=== PATIENT | female | born 1945 | race Caucasian/White ===

== ENCOUNTER 2025-03-08 12:32 | Emergency (ER) | payer MEDICARE, SELFPAY ==
--- OUTSIDE RECORDS SUMMARY | 2025-02-21 20:00 | XMS_ITS | Continuity of Care Document ---
Author Organization [facility] Address [address] [place] [address] Phone Care Team Providers Care Gis Developer Name Role Phone Cedric Carmen MD Unavailable Unavailable Allergies, Adverse Reactions, Alerts Substance Reaction Status Criticality HYDROMORPHONE HCL Active No Informa tion NSAIDS (Non-Steroidal Anti-Inflammatory Drug) Active No Information codeine Active No Information Medications Medication Instructions Dosage Effective Dates (start - stop) Status Comments buprenorphine 8 mg-naloxone [address] 1 tablet by sublingual route every day allow to dissolve slowly in mouth without chewing or swallowing 1.00 tablet - Active Claritin RediTabs 10 mg disintegrating tablet take 1 tablet by oral route every day and place on top of the tongue where it will dissolve, then swallow 10 MG - Active leflunomide 20 mg tablet take 1 tablet by oral route every day 20 MG - Active metformin 500 mg tablet take 1 tablet by oral route 2 times every day with morning and evening meals 500 MG - Active verapamil ER (SR) 120 mg tablet,extended release take 1 tablet by oral route every day with food 120 MG - Active Vitamin C 500 mg capsule,extended release - Active vitamin E 100 unit capsule - Active Procedures Procedure Date REM MNTR PHYSIOL EDWARD DEV REM PHYSIOL MNTR 20 MIN MO Rem physiol mntr ea addl REM MNTR PHYSIOL EDWARD DEV REM PHYSIOL MNTR 20 MIN MO Rem physiol mntr ea addl REM MNTR PHYSIOL DEWARD DEV REM PHYSIOL MNTR 20 MIN MO May-31-2025 Rem physiol mntr ea addl REM MNTR PHYSIOL EDWARD DEV REM PHYSIOL MNTR 20 MIN Rem physiol mntr ea addl REM MNTR PHYSIOL EDWARD DEV REM PHYSIOL MNTR 20 MIN MO Rem physiol mntr ea addl REM MNTR PHYSIOL EDWARD DEV REM PHYSIOL MNTR 20 MIN MO Rem physiol mntr ea addl 20 REM MNTR PHYSIOL EDWARD DEV REM PHYSIOL MNTR 20 MIN MO Rem physiol mntr ea addl REM MNTR PHYSIOL EDWARD DEV REM PHYSIOL MNTR 20 MIN MO Rem physiol mntr ea addl REM MNTR PHYSIOL EDWARD DEV REM PHYSIOL MNTR 20 MIN MO Rem physiol mntr ea addl REM MNTR PHYSIOL EDWARD DEV REM PHYSIOL MNTR 20 MIN Rem physiol mntr ea addl REM MNTR PHYSIOL EDWARD DEV REM PHYSIOL MNTR 20 MIN MO Rem physiol mntr ea addl REM MNTR PHYSIOL EDWARD DEV REM PHYSIOL MNTR 20 MIN Rem physiol mntr ea addl REM MNTR PHYSIOL EDWARD DEV REM PHYSIOL MNTR 20 MIN MO Rem physiol mntr ea addl 20 REM MNTR PHYSIOL EDWARD DEV REM PHYSIOL MNTR 20 MIN MO Rem physiol mntr ea addl REM MNTR PHYSIOL EDWARD DEV REM PHYSIOL MNTR 20 MIN MO Rem physiol mntr ea addl REM MNTR PHYSIOL EDWARD DEV REM PHYSIOL MNTR 20 MIN MO Rem physiol mntr ea addl REM MNTR PHYSIOL EDWARD DEV REM PHYSIOL MNTR 20 MIN MO Rem physiol mntr ea addl REM MNTR PHYSIOL EDWARD DEV REM PHYSIOL MNTR 20 MIN MO Rem physiol mntr ea addl 20 REM MNTR PHYSIOL EDWARD DEV REM PHYSIOL MNTR 20 MIN MO Rem physiol mntr ea addl 20 REM MNTR PHYSIOL EDWARD DEV REM PHYSIOL MNTR 20 MIN MO Rem physiol mntr ea addl REM MNTR PHYSIOL EDWARD DEV REM PHYSIOL MNTR 20 MIN MO Rem physiol mntr ea addl REM MNTR PHYSIOL EDWARD DEV REM PHYSIOL MNTR 20 MIN MO Rem physiol mntr ea addl 20 REM MNTR PHYSIOL EDWARD DEV REM PHYSIOL MNTR 20 MIN MO Rem physiol mntr ea addl 20 REM MNTR PHYSIOL EDWARD DEV REM PHYSIOL MNTR 20 MIN MO Rem physiol mntr ea addl 20 REM MNTR PHYSIOL EDWARD DEV REM PHYSIOL MNTR 20 MIN MO Rem physiol mntr ea addl 20 Office/outpatient visit,est, low 2022 X-RAY EXAM HIP UNI 2-3 VIEWS REM MNTR PHYSIOL EDWARD DEV REM PHYSIOL MNTR 20 MIN MO Rem physiol mntr ea addl 20 REM MNTR PHYSIOL EDWARD DEV REM PHYSIOL MNTR 20 MIN MO Rem physiol mntr ea addl REM MNTR PHYSIOL EDWARD DEV REM PHYSIOL MNTR 20 MIN MO Rem physiol mntr ea addl 20 REM MNTR PHYSIOL EDWARD DEV REM PHYSIOL MNTR 20 MIN MO Rem physiol mntr ea addl REM MNTR PHYSIOL EDWARD DEV REM PHYSIOL MNTR 20 MIN MO Rem physiol mntr ea addl 20 REM MNTR PHYSIOL EDWARD DEV REM PHYSIOL MNTR 20 MIN MO Rem physiol mntr ea addl 20 REM PHYSIOL MNTR 20 MIN MO Rem physiol mntr ea addl REM MNTR PHYSIOL EDWARD DEV REM PHYSIOL MNTR 20 MIN MO Rem physiol mntr ea addl REM MNTR PHYSIOL EDWARD DEV REM PHYSIOL MNTR 20 MIN MO Rem physiol mntr ea addl 20 REM MNTR PHYSIOL EDWARD DEV REM PHYSIOL MNTR 20 MIN MO Rem physiol mntr ea addl 20 REM PHYSIOL MNTR 20 MIN MO Rem physiol mntr ea addl 20 REM MNTR PHYSIOL EDWARD DEV REM PHYSIOL MNTR 20 MIN MO Rem physiol mntr ea addl 20 REM PHYSIOL MNTR 20 MIN MO Rem physiol mntr ea addl 20 REM MNTR PHYSIOL EDWARD DEV REM PHYSIOL MNTR 20 MIN MO Rem physiol mntr ea addl REM MNTR PHYSIOL EDWARD DEV REM PHYSIOL MNTR 20 MIN MO Rem physiol mntr ea addl 20 REM MNTR PHYSIOL EDWARD DEV Postop followup visit X-RAY EXAM HIP UNI 2-3 VIEWS No Charge REM PHYSIOL MNTR 20 MIN MO Rem physiol mntr ea addl REM MNTR PHYSIOL EDWARD DEV REM PHYSIOL MNTR 20 MIN MO Rem physiol mntr ea addl Total hip arthroplasty &prosthesis PA Total Hip Arthoplasty & Prosthesis Walker folding wheeled w/o s HO post-op hip abduction Intermittent Compression Device - SELF P AY REM MNTR PHYSIOL EDWARD DEV Advance Directives Directive Yes / No Effective Date File Name No Information Encounters Encounter Description Practice Location Reason(s) For Visit Diagnoses Date Provider Providers Copied on Encounter REM MNTR PHYSIOL EDWARD DEV [facility], [facility], tel:[phone] No Information 5 Kermit Steele. [address] [place] [address], [facility], . tel:[phone] Referring Provider: Cedric Craig, [address] [place] [address], [facility]. tel:[phone] REM MNTR PHYSIOL EDWARD DEV [facility], [facility], tel:[phone] No Information 5 Kermit Steele. [address] [place] [address], [address], [facility], . tel:[phone] Referring Provider: Cedric Craig, [address] [place] [address], [facility]. tel:[phone] REM MNTR PHYSIOL EDWARD DEV [facility], [facility], tel:[phone] No Information 5 Kermit Steele. [address] [place] [address], [address], [place]. tel:[phone] Referring Provider: Cedric Craig, [address] [place] [address] [address], [place], [address]. tel:[phone] REM MNTR PHYSIOL EDWARD DEV [facility], [address] [place] [address], [facility], tel:[phone] No Information 5 Kermit Steele. [address] [place] [address], [address], [place], [address], [place]. tel:[phone] Referring Provider: Cedric Craig, [address] [place] [address] [address], [place], [address]. tel:[phone] REM MNTR PHYSIOL EDWARD DEV [facility], [address] [place] [address], [facility], tel:[phone] No Information 5 Kermit Steele. [address] [place] [address], [address], [place], [address], [place]. tel:[phone] Referring Provider: Cedric Craig, [address] [place] [address] [address], [place], [address]. tel:[phone] REM MNTR PHYSIOL EDWARD DEV [facility], [address] [place] [address], [facility], tel:[phone] No Information 5 Kermit Steele. [address] [place] [address], [address], [place], [address], [place]. tel:[phone] Referring Provider: Cedric Craig, [address] [place] [address] [address], [place], [address]. tel:[phone] REM MNTR PHYSIOL EDWARD DEV [facility], [address] [place] [address], [facility], tel:[phone] No Information 5 Kermit Steele. [address] [place] [address], [address], [place], [address], [place]. tel:[phone] Referring Provider: Cedric Craig, [address] [place] [address] [address], [place], [address]. tel:[phone] REM MNTR PHYSIOL EDWARD DEV [facility], [address] [place] [address], [address], [place] tel:[phone] No Information 4 Kermit Steele. [address] [place] [address], [address], [place], [address], [place]. tel:[phone] Referring Provider: Cedric rCaig, [address] [place] [address] [address], [place], [address]. tel:[phone] REM MNTR PHYSIOL EDWARD DEV [facility], [address] [place] [address], [facility], [place] tel:[phone] No Information 4 Kermit Steele. [address] [place] [address], [address], [place], [address], [place]. tel:[phone] Referring Provider: Cedric Craig, [address] [place] [address] [address], [place], [address]. tel:[phone] REM MNTR PHYSIOL EDWARD DEV [facility], [address] [place] [address], [address], [place] tel:[phone] No Information 4 Kermit Steele. [address] [place] [address], [address], [place], [address], [place]. tel:[phone] Referring Provider: Cedric Craig, [address] [place] [address] [address], [place], [address]. tel:[phone] REM MNTR PHYSIOL EDWARD DEV [facility], [address] [place] [address], [address], [place] tel:[phone] No Information 4 Kermit Steele. [address] [place] [address], [address], [place], [address], [place]. tel:[phone] Referring Provider: Cedric Craig, [address] [place] [address] [address], [place], [address]. tel:[phone] REM MNTR PHYSIOL EDWARD DEV [facility], [address] [place] [address], [address], [place] tel:[phone] [address] No Information 4 Kermit Steele. [address] [place] [address], [address], [place], [address], [place]. tel:[phone] Referring Provider: Cedric Craig, [address] [place] [address] [address], [place], [address]. tel:[phone] REM MNTR PHYSIOL EDWARD DEV [facility], [address] [place] [address], [address], [place] tel:[phone] No Information 4 Kermit Steele. [address] [place] [address], [address], [place], [address], [place]. tel:[phone] Referring Provider: Cedric Craig, [address] [place] [address] [address], [place], [address]. tel:[phone] REM MNTR PHYSIOL EDWARD DEV [facility], [address] [place] [address], [address], [place] tel:[phone] [address] No Information 4 Kermit Steele. [address] [place] [address], [address], [place], [address], [place]. tel:[phone] Referring Provider: Cedric Craig, [address] [place] [address] [address], [place], [address]. tel:[phone] REM MNTR PHYSIOL EDWARD DEV [facility], [address] [place] [address], [address], [place] tel:[phone] [address] No Information 4 Kermit Steele. [address] [place] [address], [address], [place], [address], [place]. tel:[phone] Referring Provider: Cedric Craig, [address] [place] [address] [address], [place], [address]. tel:[phone] REM MNTR PHYSIOL EDWARD DEV [facility], [place], [address], [place] tel:[phone] No Information 4 Kermit Steele. [address] [place] [address], [address], [place], [address], [place]. tel:[phone] Referring Provider: Cedric Craig, [address] [place] [address] [address], [place], [address]. tel:[phone] REM MNTR PHYSIOL EDWARD DEV [facility], [address] [place] [address], [address], [place] tel:[phone] No Information 4 Kermit Steele. [address] [place] [address], [address], [place], [address], [place]. tel:[phone] Referring Provider: Cedric Craig, [address] [place] [address] [address], [place], [address]. tel:[phone] REM MNTR PHYSIOL EDWARD DEV [facility], [address] [place] [address], [address], [place] tel:[phone] [address] No Information 4 Kermit Steele. [address] [place] [address], [address], [place], [address], [place]. tel:[phone] Referring Provider: Cedric Craig, [address] [place] [address] [address], [place], [address]. tel:[phone] REM MNTR PHYSIOL EDWARD DEV [facility], [address] [place] [address], [address], [place] tel:[phone] [address] No Information 4 Kermit Steele. [address] [place] [address], [address], [place], [address], [place]. tel:[phone] Referring Provider: Cedric Craig, [address] [place] [address] [address], [place], [address]. tel:[phone] REM MNTR PHYSIOL EDWARD DEV [facility], [address] [place] [address], [facility], tel:[phone] No Information 3 Kermit Steele. [address] [place] [address], [address], [address], [place]. tel:[phone] Referring Provider: Cedric Craig, [address] [place] [address], [address]. tel:[phone] REM MNTR PHYSIOL EDWARD DEV [facility], [address] [place] [address], [facility], tel:[phone] No Information 3 Kermit Steele. [address] [place] [address], [address], [facility], [place]. tel:[phone] Referring Provider: Cedric Craig, [address] [place] [address], [facility]. tel:[phone] REM MNTR PHYSIOL EDWARD DEV [facility], [address] [place] [address], [facility], tel:[phone] No Information 3 Kermit Steele. [address] [place] [address], [address], [facility], [place]. tel:[phone] Referring Provider: Cedric Craig, [address] [place] [address], [address]. tel:[phone] REM MNTR PHYSIOL EDWARD DEV [facility], [address] [place] [address], [facility], tel:[phone] No Information 3 Kermit Steele. [address] [place] [address], [address], [facility], [place]. tel:[phone] Referring Provider: Cedric Craig, [address] [place] [address], [address]. tel:[phone] REM MNTR PHYSIOL EDWARD DEV [facility], [address] [place] [address], [facility], [place] tel:[phone] No Information 3 Kermit Steele. [address] [place] [address], [address], [place], [address], [place]. tel:[phone] Referring Provider: Cedric Craig, [address] [place] [address] [address], [place], [address]. tel:[phone] REM MNTR PHYSIOL EDWARD DEV [facility] [address], [facility], tel:[phone] No Information 3 Kermit Steele. [address] [place] [address], [address], [place], [address], [place]. tel:[phone] Referring Provider: Cedric Craig, [address] [place] [address], [place], [address]. tel:[phone] Office/outpa tient visit,[facility], [address], [facility], tel:[phone] Unilateral osteoarthritis resulting from hip dysplasia, left hipStatus post left hip replacement 3 Kermit Steele. [address] [place] [address], [address], [place], [address], [place]. tel:[phone] Referring Provider: Cedric Craig, [address] [place] [address] [address], [place], [address]. tel:[phone] REM MNTR PHYSIOL EDWARD DEV [facility], [address] [place] [address], [facility], [place] tel:[phone] No Information 3 Kermit Steele. [address] [place] [address], [address], [place], [address], [place]. tel:[phone] Referring Provider: Cedric Craig, [address] [place] [address], [place], [address]. tel:[phone] REM MNTR PHYSIOL EDWARD DEV [facility], [facility], [place] tel:[phone] [address] No Information 3 Kermit Steele. [address] [place] [address], [address], [place], [address], [place]. tel:[phone] Referring Provider: Cedric Craig, [address] [place] [address] [address], [place], [address]. tel:[phone] REM MNTR PHYSIOL EDWARD DEV [facility], [address] [place] [address], [facility], tel:[phone] [address] No Information 3 Kermit Steele. [address] [place] [address], [address], [place], [address], [place]. tel:[phone] Referring Provider: Cedric Craig, [address] [place] [address] [address], [place], [address]. tel:[phone] REM MNTR PHYSIOL EDWARD DEV [facility], [address] [place] [address], [facility], tel:[phone] [address] No Information 3 Kermit Steele. [address] [place] [address], [address], [place], [address], [place]. tel:[phone] Referring Provider: Cedric Craig, [address] [place] [address] [address], [place], [address]. tel:[phone] REM MNTR PHYSIOL EDWARD DEV [facility], [address] [place] [address], [facility], [place] tel:[phone] [address] No Information 3 Kermit Steele. [address] [place] [address], [address], [place], [address], [place]. tel:[phone] Referring Provider: Cedric Craig, [address] [place] [address] [address], [place], [address]. tel:[phone] REM MNTR PHYSIOL EDWARD DEV [facility], [address] [place] [address], [address], [place] tel:[phone] No Information 3 Kermit Steele. [address] [place] [address], [address], [place], [address], [place]. tel:[phone] Referring Provider: Cedric Craig, [address] [place] [address] [address], [place], [address]. tel:[phone] REM PHYSIOL MNTR 20 MIN MO [facility], [facility] [place], [facility], [place] tel:[phone] No Information 2 Kermit Steele. [address] [place] [address], [address], [place], [address], [place]. tel:[phone] Referring Provider: Cedric Craig, [address] [place] [address] [address], [place], [address]. tel:[phone] REM MNTR PHYSIOL EDWARD DEV [facility], [facility] [place], [facility], [place] tel:[phone] No Information 2 Kermit Steele. [address] [place] [address], [address], [place], [address], [place]. tel:[phone] Referring Provider: Cedric Craig, [address] [place] [address], [place], [address]. tel:[phone] REM MNTR PHYSIOL EDWARD DEV [facility], [facility] [place], [facility], [place] tel:[phone] No Information 2 Kermit Steele. [address] [place] [address], [address], [place], [address], [place]. tel:[phone] Referring Provider: Cedric Craig, [address] [place] [address], [place], [address]. tel:[phone] REM MNTR PHYSIOL EDWARD DEV [facility], [address] [place], [address], [place] tel:[phone] No Information 2 Kermit Steele. [address] [place] [address], [address], [place], [address], [place]. tel:[phone] Referring Provider: Cedric Craig, [address] [place] [address] [address], [place], [address]. tel:[phone] REM PHYSIOL MNTR 20 MIN MO [facility], [address] [place], [address], [place] tel:[phone] [address] [facility] [place] No Information 2 Kermit Steele. [address] [place] [address], [address], [place], [address], [place]. tel:[phone] Referring Provider: Cedric Craig, [address] [place] [address] [address], [place], [address]. tel:[phone] REM PHYSIOL MNTR 20 MIN MO [facility], [facility] [place], [facility], [place] tel:[phone] [facility] No Information 2 Kermit Steele. [address] [place] [address], [address], [place], [address], [place]. tel:[phone] Referring Provider: Cedric Craig, [address] [place] [address] [address], [place], [address]. tel:[phone] REM MNTR PHYSIOL EDWARD DEV [facility], [address] [place], [address], [place] tel:[phone] [address] [facility] No Information 2 Kermit Steele. [address] [place] [address], [address], [place], [address], [place]. tel:[phone] Referring Provider: Cedric Craig, [address] [place] [address] [address], [place], [address]. tel:[phone] REM PHYSIOL MNTR 20 MIN MO [facility], [address] [place], [address], [place] tel:[phone] [facility] [place] No Information 2 Kermit Steele. [address] [place] [address], [address], [place], [address], [place]. tel:[phone] Referring Provider: Cedric Craig, [address] [place] [address] [address], [place], [address]. tel:[phone] REM PHYSIOL MNTR 20 MIN MO [facility], [address] [place] [address], [facility], tel:[phone] [facility] No Information 2 Kermit Steele. [address] [place] [address], [address], [place], [address], [place]. tel:[phone] Referring Provider: Cedric Craig, [address] [place] [address] [address], [place], [facility]. tel:[phone] REM MNTR PHYSIOL EDWARD DEV [facility], [address] [place] [address], [facility], tel:[phone] [facility] No Information 2 Kermit Steele. [address] [place] [address], [address], [place], [facility], [place]. tel:[phone] Referring Provider: Cedric Craig, [address] [place] [address] Suite [facility], [place], [address]. tel:[phone] REM PHYSIOL MNTR 20 MIN MO [facility], [address] [place] [address], [facility], tel:[phone] [facility] No Information 2 Kermit Steele. [address] [place] [address], [address], [place], [address], [place]. tel:[phone] Referring Provider: Cedric Craig, [address] [place] [address] [address], [place], [address]. tel:[phone] REM MNTR PHYSIOL EDWARD DEV [facility], [address] [place] [address], [facility], tel:[phone] [facility] [place] No Information 2 Kermit Steele. [address] [place] [address], [address], [place], [facility], [place]. tel:[phone] Referring Provider: Cedric Craig, [address] [place] [address], [place], [address]. tel:[phone] REM PHYSIOL MNTR 20 MIN MO [facility] [address], [facility], tel:[phone] [facility] [address] No Information Oct-3 0 2 Kermit Steele. [address] [place] [address], [facility] [address], [place], [address], [place]. tel:[phone] Referring Provider: Cedric Craig, [address] [place] [address], [place], [address]. tel:[phone] REM MNTR PHYSIOL EDWARD DEV [facility] [address], [facility], tel:[phone] [facility] [address] No Information Oct-2 2 Kermit Steele. [address] [place] [address], [facility] [address], [place], [facility], [place]. tel:[phone] Referring Provider: Cedric Craig, [address] [place] [address], [facility]. tel:[phone] [facility] [address], [facility], tel:[phone] [facility] [address] Aftercare following joint replacement surgeryPresence of left artificial hip joint Oct- 2 Rebecca Mccarty. [address] [place] [address], [address], [address], [place]. tel:[phone] Referring Provider: Cedric Craig, [address] [place] [address], [address]. 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 [address] [place] [address], [address], [facility], [place]. tel:[phone] Referring Provider: Cedric Craig, [address] [place] [address] [address], [place], [address]. tel:[phone] [facility] [address], [facility], tel:[phone] Unilateral osteoarthritis resulting from hip dysplasia, right hipUnilateral osteoarthritis resulting from hip dysplasia, left hip Apr-0 2 Kermit Steele. [address] [place] [address], [address], [place], [address], [place]. tel:[phone] Referring Provider: Cedric Craig, [address] [place] [address] [address], [place], [address]. tel:[phone] REM PHYSIOL MNTR 20 MIN MO [facility] of [address], [facility], tel:[phone] No Information 2 Kermit Steele. [address] [place] [address], [address], [place], [address], [place]. tel:[phone] Referring Provider: Cedric Craig, [address] [place] [address], [place], [address]. tel:[phone] REM MNTR PHYSIOL EDWARD DEV [facility] of [address], [facility], tel:[phone] [facility] No Information 2 Kermit Steele. [address] [place] [address], [facility] [address], [place], [address], [place]. tel:[phone] Referring Provider: Cedric Craig, [address] [place] [address] [address], [place], [address]. tel:[phone] REM PHYSIOL MNTR 20 MIN MO [facility] of [address], [facility], tel:[phone] [facility] No Information 2 Kermit Steele. [address] [place] [address], [address], [place], [address], [place]. tel:[phone] Referring Provider: Cedric Craig, [address] [place] [address] [address], [place], [address]. tel:[phone] [facility] [place], [address] [place] [address], [facility], [place] tel:[phone] No Information 2 Kermit Steele. [address] [place] [address], [address], [place], [address], [place]. tel:[phone] Referring Provider: Cedric Craig, [address] [place] [address] [address], [place], [address]. tel:[phone] [facility] [place], [address] [place] [address], [facility], [place] tel:[phone] [facility] No Information 2 Kermit Steele. [address] [place] [address], [address], [place], [address], [place]. tel:[phone] Referring Provider: Cedric Craig, [address] [place] [address] [address], [place], [address]. tel:[phone] REM MNTR PHYSIOL EDWARD DEV [facility] [place], [address] [place] [address], [facility], [place] tel:[phone] [facility] No Information 2 Kermit Steele. [address] [place] [address], [address], [place], [address], [place]. tel:[phone] Referring Provider: Cedric Craig, [address] [place] [address] [address], [place], [address]. tel:[phone] [facility] of [address], [address], [place] tel:[phone] [facility] Unilateral primary osteoarthritis, left hip 2 Kermit Steele. [address] [place] [address], [address], [place], [address], [place]. tel:[phone] Referring Provider: Cedric Craig, [address] [place] [address] [address], [place], [address]. tel:[phone] Family History Family Member Type Diagnosis Age At Onset No Information Payers Payer name Insurance type Covered libertarian ID Alesia bey(s) Medicare [place] MB [id number] AARP Supplemental CI [id number] Social History Type Description Quantity Date Captured Comments Sex Female Smoking Status No Information Chief Complaint And Reason For Visit No Information Reason For Referral Reason For Referral No Information Plan Of Treatment Date Type Action Status Referral Referred To: [facility] Ordered: Referrals: [facility] ordered History Of Present Illness Encounter Date Complaint History Of Prese nt Illness Hip Follow Up Bilateral Hip Severity : None. Quality: Dull. Achy. Comments: Doing well little to no pain completing physical therapy. Functional Status Date Functional Assessmen t No Information Instructions Date Instruction Additional Infor mation No Information Assessments Type Assessment Date No Information Patient Care Teams Name Effective Dates (start - stop) Status Members No Information
[2025-03-08 12:36] VITALS: BP 147/79; PULSE 72; TEMP 36.8; O2SAT 94; BMI 37.2
--- OUTSIDE RECORDS SUMMARY | 2025-03-08 12:48 | XMS_ITS | Encounter Summary ---
Author Organization [facility] Address [id number] [address] [place] [address] Care Team Providers Care Cigar Brander Name Role Phone CorkyGeorgie welch RENA-SCOUT SNIPER Primary Care Provide r Encounter Details Date Type Department Care Team (Late st Contact Info) Description 04/25/2024 Orders Only [facility] [address] [place] [id number] External, Scanning Provider Social History Tobacco Use Types Packs/Day Years Used Date Smoking Tobacco: Former Cigarettes Q uit: 06/25/1976 Smokeless Tobacco: Never Alcohol Use Standard Drinks/Week Comments Yes 2 (1 standard drink = 0.6 oz pur e alcohol) socially Overall Financial Resource Strain (CARDIA) Answe r Date Recorded How hard is it for you to pa y for the very basics like food, housing, medical care, and heating? Not hard at all 08/20/2023 PHQ-2 Answer Date Recorded Total Score 0 08/20/2023 PRAPARE - Transportation Answer Date Re corded In the past 12 months, has l ack of transportation kept you from medical appointments or from getting medications? No 07/27 In the past 12 months, has l ack of transportation kept you from meetings, work, or from getting things needed for daily living? No 08/20/2023 Housing Instability Answer Date Recorde d Are you worried or concerned that in the next two months you may not have stable housing that you own, rent or stay in as a part of a household? No 08/20/2023 Childcare Answer Date Recorded Childcare Unknown 04/22/2020 Employment Answer Date Recorded Employment Unknown 04/22/2020 Hunger Screening Answer Date Recorded Within the past 12 months we worried whether our food would run out before we got money to buy more. Never True 08/20/2023 Within the past 12 months th e food we bought just didn't last and we didn't have money to get more. Never True 08/20/2023 Purpose - Life Answer Date Recorded Purpose and direction in life Unknown Comments No Sex and Gender Information Value Date Recorded Sex Assigned at Female 08/24/2022 12:04 PM EST Legal Sex Female 12:06 PM EDT Gender Identity Female 08/24/2022 12:04 PM EST Sexual Orientation Straight 08/24/2022 12 :04 PM EST documented as of this encounter Plan of Treatment Upcoming Encounters Date Type Department Care Team (Late st Contact Info) Description 03/12/2025 8:30 AM EDT Office Visit [facility] [place] [address] Georgie Johnson APRN-SCOUT SNIPER [address] [place] [address] 05/16/2025 2:00 PM EDT Office Visit [facility] [place] [address] Georgie Johnson APRN-SCOUT SNIPER [address] [place] [address] 08/27/2025 9:30 AM EST Office Visit [facility] [place] [address] Georgie Johnson APRN-SCOUT SNIPER [address] [place] [address] documented as of this encounter Procedures Procedure Name Priority Date/Time Associated Diagnosis Comments HM COLONOSCOPY Routine 04/25/2024 9:27 AM EDT documented in this encounter Results * HM COLONOSCOPY (04/25/2024 9:27 AM EDT) us Scanning Provider External HEALTH MAINTENANCE Fi nal Result MANUALLY TRANSCRIBED RESULTS documented in this encounter Visit Diagnoses Not on filedocumented in this encounter Additional Health Concerns Assessment Noted Time PHQ-9 Depression Total Score: 0 08/20/19 24 2:32 PM EST A Body Mass Index follow-up plan has been documented for the patient 03/08/2024 9:15 AM EDT documented as of this encounter Care Teams Cigar Brander Relationship Specialty Start Date End Date Georgie Johnson APRN-SCOUT SNIPER [address] [place] [address] PCP - General Family Medicine 08/06/20 documented as of this encounter
--- OUTSIDE RECORDS SUMMARY | 2025-03-08 12:48 | XMS_ITS | Encounter Summary ---
Author Organization [facility] Address [id number] [address] [place] [address] Care Team Providers Care Tilt Tray Driver Name Role Phone Georgie Johnson APRN-RECREATION THERAPY DIRECTOR Primary Care Provide r Encounter Details Date Type Department Care Team (Late st Contact Info) Description 08/15/2020 Orders Only [facility] [address] [place] [phone] External, Scanning Provider Social History Tobacco Use Types Packs/Day Years Used Date Smoking Tobacco: Never Smokeless Tobacco: Never Alcohol Use Standard Drinks/Week Comments Yes 2 (1 standard drink = 0.6 oz pur e alcohol) PHQ-2 Answer Date Recorded PHQ-2 Score 0 08/14/2020 Childcare Answer Date Recorded Childcare Unknown 04/22/2020 Employment Answer Date Recorded Employment Unknown 04/22/2020 Purpose - Life Answer Date Recorded Purpose and direction in life Unknown Comments No Sex and Gender Information Value Date Recorded Sex Assigned at Female 08/24/2022 12:04 PM EST Legal Sex Female 12:06 PM EDT Gender Identity Female 08/24/2022 12:04 PM EST Sexual Orientation Straight 08/24/2022 12 :04 PM EST COVID-19 Exposure Response Date Recorded In the last month, have you been in contact with someone who was confirmed or suspected to have Coronavirus / COVID-19? No / Unsure 08/14/2020 3:24 PM EST documented as of this encounter Plan of Treatment Upcoming Encounters Date Type Department Care Team (Late st Contact Info) Description 03/12/2025 8:30 AM EDT Office Visit [facility] [place] [phone] Georgie Johnson APRN-CNP [address] [place] [address] 05/16/2025 2:00 PM EDT Office Visit [facility] [place] [phone] Georgie Johnson APRN-CNP [address] [place] [address] 08/27/2025 9:30 AM EST Office Visit [facility] [place] [phone] Georgie Johnson APRN-CNP [address] [place] [address] documented as of this encounter Procedures Procedure Name Priority Date/Time Associated Diagnosis Comments HEMOGLOBIN A1C Routine 06/05/2020 documented in this encounter Results * Hemoglobin A1c (06/05/2020) External Hemoglobin A1C 6.2 % MANUALLY TRANSCRIBED RESULTS 06/05/2020 us Scanning Provider External LAB BLOOD ORDERABLES Final Result MANUALLY TRANSCRIBED RESULTS documented in this encounter Visit Diagnoses Not on filedocumented in this encounter Additional Health Concerns Assessment Noted Time PHQ-9 Depression Total Score: 0 08/14/19 21 3:00 PM EST A Body Mass Index follow-up plan has been documented for the patient 08/14/2020 4:56 PM EST documented as of this encounter Care Teams Tilt Tray Driver Relationship Specialty Start Date End Date Georgie Johnson APRN-CNP [address] [place] [address] PCP - General Family Medicine 08/06/20 documented as of this encounter
--- OUTSIDE RECORDS SUMMARY | 2025-03-08 12:48 | XMS_ITS | Clinical Summary ---
Author Organization [facility] Healthcare Address [address] [place] [address] Care Team Providers Care Coordinate Measuring Machine Technician Name Role Phone Unavailable Primary Care Provider Unavailabl e Allergies Active Allergy Reactions Criticality Noted Date Comments Codeine GI intolerance Medium 04/25/2008 Other Reaction(s): N AND V Hydromorphone Nausea Only Medium 05/09/2008 headache Naproxen 11/11/2024 Other Reaction(s): N AND V Nsaids Nausea Only Medium 02/07/2003 Naprosyn Medications ascorbic acid (Vitamin C) 500 MG tablet Take 500 mg by mouth in the morning. Active buPROPion XL (Wellbutrin XL) 300 MG 24 hr tablet Take 300 mg by mouth in the morning. 4 Active calcium carbonate (Os-Jovanni) 1250 (500 Ca) MG chewable tablet Chew 500 mg in the morning. Active cholecalciferol (Vitamin D-3) 125 MCG (5000 UT) tablet Take 5,000 Units by mouth in the morning. Active fluticasone (Flonase) 50 MCG/ACT nasal spray Administer 1 spray into affected nostril(s) in the morning. Active loratadine (Claritin) 10 MG tablet 1 (one) time each day at the same time Active verapamil SR (Calan SR) 120 MG ER tablet Take 120 mg by mouth in the morning. 5 Active Immunizations Immunization Administration Dates Next Due Influenza, High Dose Seasona l, Preservative Free 05/27/2016 Influenza, High-dose Seasona l, Quadrivalent, Preservative Free 06/13/2022 Influenza, Seasonal, Quadriv alent, Adjuvanted 05/29/2023 Influenza, injectable, quadr ivalent, preservative free 04/25/2020 Influenza, seasonal, injecta ble, preservative free 08/09/2024,05/10/2018,05/26/2016 Pneumococcal Conjugate PCV 13 05/27/2016 Pneumococcal Polysaccharide PPSV23 05/26/2016 Tdap 10/26/2018 Family History Medical History Relation Name Comments Heart disease Father COPD Mother Diabetes type II Mother Diverticulitis Mother Relation Name Status Comments Father Mother Social History Tobacco Use Types Packs/Day Years Used Date Smoking Tobacco: Never Smokeless Tobacco: Never Tobacco Cessation:Counseling Given: Not Answered Comments Unknown Sex and Gender Information Value Date Recorded Sex Assigned at Not on file Legal Sex Female 7:05 PM EDT Gender Identity Not on file Sexual Orientation Not on file Last Filed Vital Signs Vital Sign Reading Time Taken Comments Blood Pressure 120/70 04/02/2023 8:36 AM EDT Pulse 79 04/02/2023 8:36 AM EDT Temperature - - Respiratory Rate 18 04/02/2023 8:36 AM EDT Oxygen Saturation - - Inhaled Oxygen Concentration - - Weight 90.7 kg (200 lb) 04/02/2023 8:36 AM EDT Height 162.6 cm (5' 4.02 ) 04/02/2023 8:36 AM ED T Body Mass Index 34.31 04/02/2023 8:36 AM EDT Plan of Treatment Health Maintenance Due Date Last Done Comments Influenza Vaccine (#1) 2025 5, 05/29/2023, 06/13/2022, Additional history exists Pneumococcal Vaccine: 65+ Years Completed 6, 05/26/2016 Mammogram Discontinued 05/10/2024, 04/25, 10/09/2022, Additional history exists Procedures Procedure Name Priority Date/Time Associated Diagnosis Comments MALICK SCREENING W LEONARDO 05/10/2024 11:42 AM EDT from Last 3 Months or Most Recently Relevant to Health Maintenance Results * MALICK SCREENING W LEONARDO (05/10/2024 11:42 AM EDT) Anatomical Region Laterality Modality Other 05/10/2024 11:4 2 AM EDT Narrative 05/11/2024 7:18 AM EDT * * *Final Report* * * DATE OF EXAM: May 10 2024 11:42AM [facility] 0582 - MALICK SCREENING W LEONARDO / PROCEDURE REASON: Encounter for screening mammogram * * * * Physician Interpretation * * * * RESULT: [facility] [id number] [place] [address] HISTORY: Patient is 78 years old and is seen for screening and is asymptomatic in both breasts. The patient has no personal history of cancer. COMPARISON STUDIES: The present examination has been compared to prior imaging studies dated 07/17/2019 (mammogram), 09/27/2019 (ultrasound), 09/27/2019 (mammogram), 04/23/2021 (mammogram), 07/04/2021 (mammogram), 07/04/2021 (ultrasound) and 10/09/2022 (mammogram). MAMMOGRAM TECHNIQUE: The study was acquired using full field digital technology and interpreted from soft copy. Digital Breast Tomosynthesis (DBT) images were obtained and used to assist in the interpretation of this examination. Computer-aided detection was utilized by the radiologist in the interpretation of this examination. MAMMOGRAM FINDINGS: The breasts are heterogeneously dense, which may obscure small masses. There are no significant changes from the prior study. There are benign calcifications seen in both breasts. There are multiple circumscribed masses in both breasts, several of which have fluctuated in size from prior studies, with cysts documented on prior ultrasounds. No suspicious masses, calcifications or other abnormalities are seen in either breast. IMPRESSION: There is no mammographic evidence of malignancy. Routine follow-up mammogram in 1 year is recommended. BI-RADS Category 2: Benign RISK: Based on the Tyrer-Cuzick (TC) risk assessment model, this patient has a 2.6% lifetime risk of developing breast cancer, meaning they are at average risk for developing breast cancer. However, this is only an estimate based on available history provided on the patient's questionnaire. We encourage all patients to talk with their providers about these results, further recommendations for managing breast health, and appropriate supplemental screening options if the patient has dense breast tissue. Interpreting Radiologist: Laith Atkins M.D. Electronically signed on: 05/11/2024 Research Neuropsychologist: SAHIL Transcribe Date/Time: May 10 2024 11:23A Dictated by: LAITH ATKINS MD This examination was interpreted and the report reviewed and electronically signed by: LAITH ATKINS MD on May 11 2024 7:13AM EST [id number]^SI^ACN Procedure Note Radiology, Radiologist, - 05/11/2024 * * *Final Report* * * DATE OF EXAM: May 10 2024 11:42AM [facility] 0582 - MALICK SCREENING W LEONARDO / PROCEDURE REASON: Encounter for screening mammogram * * * * Physician Interpretation * * * * RESULT: [facility] [id number] [place] [address] HISTORY: Patient is 78 years old and is seen for screening and is asymptomatic in both breasts. The patient has no personal history of cancer. COMPARISON STUDIES: The present examination has been compared to prior imaging studies dated 07/17/2019 (mammogram), 09/27/2019 (ultrasound), 09/27/2019 (mammogram), 04/23/2021 (mammogram), 07/04/2021 (mammogram), 07/04/2021 (ultrasound) and 10/09/2022 (mammogram). MAMMOGRAM TECHNIQUE: The study was acquired using full field digital technology and interpreted from soft copy. Digital Breast Tomosynthesis (DBT) images were obtained and used to assist in the interpretation of this examination. Computer-aided detection was utilized by the radiologist in the interpretation of this examination. MAMMOGRAM FINDINGS: The breasts are heterogeneously dense, which may obscure small masses. There are no significant changes from the prior study. There are benign calcifications seen in both breasts. There are multiple circumscribed masses in both breasts, several of which have fluctuated in size from prior studies, with cysts documented on prior ultrasounds. No suspicious masses, calcifications or other abnormalities are seen in either breast. IMPRESSION: There is no mammographic evidence of malignancy. Routine follow-up mammogram in 1 year is recommended. BI-RADS Category 2: Benign RISK: Based on the Tyrer-Cuzick (TC) risk assessment model, this patient has a 2.6% lifetime risk of developing breast cancer, meaning they are at average risk for developing breast cancer. However, this is only an estimate based on available history provided on the patient's questionnaire. We encourage all patients to talk with their providers about these results, further recommendations for managing breast health, and appropriate supplemental screening options if the patient has dense breast tissue. Interpreting Radiologist: Laith Atkins M.D. Electronically signed on: 05/11/2024 Research Neuropsychologist: SAHIL Transcribe Date/Time: May 10 2024 11:23A Dictated by: LAITH ATKINS MD This examination was interpreted and the report reviewed and electronically signed by: LAITH ATKINS MD on May 11 2024 7:13AM EST [id number]^SI^ACN Candelario Manrique DO [facility] Final Resu lt from Last 3 Months or Most Recently Relevant to Health Maintenance Insurance MEDICARE
--- OUTSIDE RECORDS SUMMARY | 2025-03-08 12:48 | XMS_ITS | Encounter Summary ---
Author Organization [facility] Address [address] [place] [address] Care Team Providers Care Front Clerk Name Role Phone Unavailable Primary Care Provider Unavailabl e Source Comments In the event this information is protected by the Federal Confidentiality of Alcohol and Drug AbusePatient Records regulations: The Federal rules restrict any use of the information to criminally investigate or prosecute any alcohol or drug abuse patient.[facility] Encounter Details Date Type Department Care Team (Late st Contact Info) Description 01/11/2025 Results Follow-Up Endocrinology [address] [facility] [place] [address] Evangelist Wetzel MD [address] [facility] [address] [place], [place] [id number] Social History Tobacco Use Types Packs/Day Years Used Date Smoking Tobacco: Former Cigarettes 0.5 6 0 07/26/1969 - 07/26/1975 Smokeless Tobacco: Never Alcohol Use Standard Drinks/Week Comments Yes 0 (1 standard drink = 0.6 oz pur e alcohol) glass of wine rarely PHQ-2 Answer Date Recorded PHQ-2 score 0 12/17/2024 Area Deprivation Index Answer Date Giovani rded National Score (1-100), lower number is lower ri sk 60 05/10/2024 State Score (1-10), lower number is lower risk 4 05/10/2024 Data from: https://www.neighborhoodatlas.medicine.[facility].edu/. Last address used for calculation [address] 05/10/2024 Comments No Sex and Gender Information Value Date Recorded Sex Assigned at Not on file Legal Sex Female 9:58 AM EST Gender Identity Not on file Sexual Orientation Not on file documented as of this encounter Plan of Treatment Upcoming Encounters Date Type Department Care Team (Latest Contact Info) Description 04/18/2025 8:00 AM EDT Office Visit [address] [address] Alycia Huggins MD [address] [place], [place] [phone] [facility] 04/18/2025 8:45 AM EDT Social Work [address] [address] [place], Body Maker Machine Setter [address] [place], [place] [phone] [facility] 04/18/2025 9:30 AM EDT Education [address] [address] [place], Notching Machine Operator [address] [address] [facility] 04/18/2025 9:55 AM EDT Nurse Visit [address] [address] [place], Nurse [address] [place] [address] [facility] 04/18/2025 10:15 AM EDT OT/PT/Speech Visit [facility] Physical Therapy [address] [place] [address] [place], Physical Therapist [address] [address] [facility] Team clinic 04/18/2025 11:00 AM EDT OT/PT/Speech Visit [facility] Occupational Therapy [address] [address] Josseline Fatima, OT [address] [place] [address] [facility] Team clinic 04/18/2025 11:45 AM EDT Office Visit [facility] Speech Therapy [address] [address] [facility] als Team [facility] 06/27/2025 1:10 PM EST Office Visit Endocrinology [address] [place] [address] Evangelist Wetzel MD [address] [facility] [place] [address] 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 Author Blood Pressure < 130/80 Blood Pressure 137/61( 025 11:41 AM EDT) Riki Landa MD documented as of this encounter Visit Diagnoses Not on filedocumented in this encounter
--- OUTSIDE RECORDS SUMMARY | 2025-03-08 12:48 | XMS_ITS | Encounter Summary ---
Author Organization [facility] Address [address] [place] [address] Care Team Providers Care Die Storage Worker Name Role Phone Unavailable Primary Care Provider Unavailabl e Source Comments In the event this information is protected by the Federal Confidentiality of Alcohol and Drug AbusePatient Records regulations: The Federal rules restrict any use of the information to criminally investigate or prosecute any alcohol or drug abuse patient.[facility] Reason for Visit * Reason Comments Received Outside Medical Records Encounter Details Date Type Department Care Team (Late st Contact Info) Description 01/18/2025 Telephone Neurology [address] [place] [address] Alycia Huggins MD [address] [place] [address] Received Outside Medical Records Social History Tobacco Use Types Packs/Day Years [...] is lower risk 4 05/10/2024 Data from: https://www.neighborhoodatlas.[facility]/. Last address used for calculation [address] 05/10/2024 Comments No Sex and Gender Information Value Date Recorded Sex Assigned at Not on file Legal Sex Female 9:58 AM EST Gender Identity Not on file Sexual Orientation Not on file documented as of this encounter Miscellaneous Notes * Telephone Encounter - Sandra Marrero RN - 01/19/2025 8:[address] Huggins aware of outside medical records available in scanned documents Sandra Marrero RUBBER TUBING SPLICER [facility] [place] * Telephone Encounter - Michelle Catalan - 01/18/2025 4:40 PM EDT Type of record received: Labs - Genetic Testing Records received from: [facility] Records received via: Faxed Records scanned into Referral.IM: Yes Records have been forwarded to: Joseluis documented in this encounter Plan of Treatment Upcoming Encounters Date Type Department Care Team (Latest Contact Info) Description 04/18/2025 8:00 AM EDT Office Visit [address] [address] Alycia Huggins MD [address] [place] [address] new [facility] Team clinic 04/18/2025 8:45 AM EDT Social Work [address] [address] Als, Tank Cleaner [address] [place] [address] new als Team clinic 04/18/2025 9:30 AM EDT Education [address] [address] Als, Cook Mayonnaise [address] [place] [address] new als Team clinic 04/18/2025 9:55 AM EDT Nurse Visit [address] [address] Als, Nurse [address] [place] [address] new als Team clinic 04/18/2025 10:15 AM EDT OT/PT/Speech Visit [facility] Physical Therapy [address] [place] [address] Als, Physical Therapist [address] [place] [address] new als Team clinic 04/18/2025 11:00 AM EDT OT/PT/Speech Visit [facility] Occupational Therapy [address] [place] [address] Josseline Fatima, OT [address] [place] [address] new als Team clinic 04/18/2025 11:45 AM EDT Office Visit [facility] Speech Therapy [address] [place] [address] new als Team clinic 06/27/2025 1:10 PM EST Office Visit Endocrinology [address] [place] [address] Evangelist Wetzel MD [address] [facility] [place] [address] 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 Author Blood Pressure < 130/80 Blood Pressure 137/61( 025 11:41 AM EDT) Riki Landa MD documented as of this encounter Visit Diagnoses Not on filedocumented in this encounter
--- OUTSIDE RECORDS SUMMARY | 2025-03-08 12:48 | XMS_ITS | Encounter Summary ---
Author Organization [facility] Address [address] [place] [address] Care Team Providers Care Log Manager Name Role Phone Unavailable Primary Care Provider Unavailabl e Source Comments In the event this information is protected by the Federal Confidentiality of Alcohol and Drug AbusePatient Records regulations: The Federal rules restrict any use of the information to criminally investigate or prosecute any alcohol or drug abuse patient.[facility] Encounter Details Date Type Department Care Team (Late st Contact Info) Description 02/19/2025 Get Medical Advice Endocrinology [address] [place], [place] [phone] Provider, Ccf MEDICATION Social History Tobacco Use Types Packs/Day Years Used Date Smoking Tobacco: Former Cigarettes 0.5 6 0 07/26/1969 - 07/26/1975 Smokeless Tobacco: Never Alcohol Use Standard Drinks/Week Comments Yes 0 (1 standard drink = 0.6 oz pur e alcohol) glass of wine rarely PHQ-2 Answer Date Recorded PHQ-2 score 0 02/09/2025 Area Deprivation Index Answer Date Giovani rded National Score (1-100), lower number is lower ri sk 60 05/10/2024 State Score (1-10), lower number is lower risk 4 05/10/2024 Data from: https://www.neighborhoodatlas.medicine.[facility].edu/. Last address used for calculation [address] [...] Description 04/18/2025 8:00 AM EDT Office Visit [address] [address] Alycia Huggins MD [address] [place] [employer] [place] [place], [place] [phone] new als Team clinic 04/18/2025 8:45 AM EDT Social Work [address] [address] Als, Enlisted Aircrew/Aerial Observer/Gunner [address] [place] [address] new als Team clinic 04/18/2025 9:30 AM EDT Education [address] [address] Als, Rn Coronary Care Unit [address] [place] [address] new als Team clinic 04/18/2025 9:55 AM EDT Nurse Visit [address] [address] Als, Nurse [address] [place] [address] new als Team clinic 04/18/2025 10:15 AM EDT OT/PT/Speech Visit [facility] Physical Therapy [address] [place] [address] Als, Physical Therapist [address] [place] [address] new als Team clinic 04/18/2025 11:00 AM EDT OT/PT/Speech Visit [facility] Occupational Therapy [address] [place] [address] Josseline Fatima, OT [address] [place] [address] [facility] 04/18/2025 11:45 AM EDT Office Visit [facility] Speech Therapy [address] [place] [address] [facility] 06/27/2025 1:10 PM EST Office Visit Endocrinology [address] [place] [address] Evangelist Wetzel MD [address] [facility] [place] [address] 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 Author Blood Pressure < 130/80 Blood Pressure 137/61( 025 11:41 AM EDT) Riki Landa MD documented as of this encounter Visit Diagnoses Diagnosis Hypothyroidism due to Gem thyroiditis- Primary documented in this encounter
--- OUTSIDE RECORDS SUMMARY | 2025-03-08 12:48 | XMS_ITS | Encounter Summary ---
Author Organization [facility] Address [address] [place] [address] Care Team Providers Care Equipment Validation Engineer Name Role Phone Unavailable Primary Care Provider Unavailabl e Encounter Details Date Type Department Care Team (Late st Contact Info) Description 05/10/2024 Clinisync Result Encounter [facility] External Department Unsolicited Candelario Manrique, DO [address] [place] [address] Social History Tobacco Use Types Packs/Day Years Used Date Smoking Tobacco: Never Assessed Comments Unknown Sex and Gender Information Value Date Recorded Sex Assigned at Not on file Legal Sex Female 7:05 PM EDT Gender Identity Not on file Sexual Orientation Not on file documented as of this encounter Plan of Treatment Not on file documented as of this encounter Procedures Procedure Name Priority Date/Time Associated Diagnosis Comments MALICK SCREENING W LEONARDO 05/10/2024 11:42 AM EDT documented in this encounter Results * MALICK SCREENING W LEONARDO (05/10/2024 11:42 AM EDT) Anatomical Region Laterality Modality Other 05/10/2024 11:4 2 AM EDT Narrative 05/11/2024 7:18 AM EDT * * *Final Report* * * DATE OF EXAM: May 10 2024 11:42AM [facility] 0582 - MALICK SCREENING W LEONARDO / PROCEDURE REASON: Encounter for screening mammogram * * * * Physician Interpretation * * * * RESULT: [facility] [address] [place] [address] HISTORY: Patient is 78 years old and [...] Laith Atkins M.D. Electronically signed on: 05/11/2024 Power Systems Engineer: SAHIL Transcribe Date/Time: May 10 2024 11:23A Dictated by: LAITH ATKINS MD This examination was interpreted and the report reviewed and electronically signed by: LAITH ATKINS MD on May 11 2024 7:13AM EST [id number]^[id number]^SI^ACN Procedure Note Radiology, Radiologist, - 10/17/2024 * * *Final Report* * * DATE OF EXAM: May 10 2024 11:42AM [facility] 0582 - MALICK SCREENING W LEONARDO / PROCEDURE REASON: Encounter for screening mammogram * * * * Physician Interpretation * * * * RESULT: [facility] [address] [place] [address] HISTORY: Patient is 78 years old and [...] Laith Atkins M.D. Electronically signed on: 05/11/2024 Power Systems Engineer: SAHIL Transcribe Date/Time: May 10 2024 11:23A Dictated by: LAITH ATKINS MD This examination was interpreted and the report reviewed and electronically signed by: LAITH ATKINS MD on May 11 2024 7:13AM EST [id number]^AGFA_[id number]^SI^ACN us Candelario Manrique DO [facility] Final Resu lt documented in this encounter Visit Diagnoses Not on filedocumented in this encounter
--- OUTSIDE RECORDS SUMMARY | 2025-03-08 12:48 | XMS_ITS | Encounter Summary ---
Author Organization [facility] Address [address] [place] [address] Care Team Providers Care Face Boss Name Role Phone Unavailable Primary Care Provider Unavailabl e Source Comments In the event this information is protected by the Federal Confidentiality of Alcohol and Drug AbusePatient Records regulations: The Federal rules restrict any use of the information to criminally investigate or prosecute any alcohol or drug abuse patient.[facility] Encounter Details Date Type Department Care Team (Late st Contact Info) Description 03/06/2025 Patient Msg Neurology [address] [place] [phone] Provider, Ccdeysi from [facility] clinic Social History Tobacco Use Types Packs/Day Years [...] is lower risk 4 05/10/2024 Data from: https://www.neighborhoodatlas.medicine.[facility].edu/. Last address used for calculation [address] 05/10/2024 Comments No Sex and Gender Information Value Date Recorded Sex Assigned at Not on file Legal Sex Female 9:58 AM EST Gender Identity Not on file Sexual Orientation Not on file documented as of this encounter Plan of Treatment Upcoming Encounters Date Type Department Care Team (Latest Contact Info) Description 04/18/2025 8:00 AM EDT Office Visit [address] [address] Alycia Huggins MD [address] [place] [address] new als Team clinic 04/18/2025 8:45 AM EDT Social Work [address] [address] Als, Layout Former [address] [place] [address] new als Team clinic 04/18/2025 9:30 AM EDT Education [address] [address] Als, Radio Script Writer [address] [place] [address] new als Team clinic 04/18/2025 9:55 AM EDT Nurse Visit [address] [address] Als, Nurse [address] [place] [address] new als Team clinic 04/18/2025 10:15 AM EDT OT/PT/Speech Visit [facility] Physical Therapy [address] [place] [address] Als, Physical Therapist [address] [place] [address] new als Team clinic 04/18/2025 11:00 AM EDT OT/PT/Speech Visit [facility] Occupational Therapy [address] [place] [address] Josseline Fatima, OT [address] [place] [address] new als Team clinic 04/18/2025 11:45 AM EDT Office Visit [facility] Speech Therapy [address] [place] [address] new als Team clinic 06/27/2025 1:10 PM EST Office Visit Endocrinology [address] [place] [address] Evangelist Wetzel MD [address] [facility] [place] [address] 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 Author Blood Pressure < 130/80 Blood Pressure 137/61( 025 11:41 AM EDT) Riki Landa MD documented as of this encounter Visit Diagnoses Not on filedocumented in this encounter
--- OUTSIDE RECORDS SUMMARY | 2025-03-08 12:48 | XMS_ITS | Encounter Summary ---
Author Organization [facility] Address [id number] [address] [place] [address] Care Team Providers Care Drying Unit Felting Machine Operator Name Role Phone Georgie Johnson APRN-SEAT MENDER Primary Care Provide r Encounter Details Date Type Department Care Team (Late st Contact Info) Description 08/15/2020 Orders Only [facility] [address] [place] [phone] External, Scanning Provider Social History Tobacco Use [...] EDT Office Visit [facility] [address] [place] [phone] Georgie Johnson APRN-SEAT MENDER [address] [place] [address] 05/16/2025 2:00 PM EDT Office Visit [facility] [place] [address] Georgie Johnson ORTHOPEDIC RN-SEAT MENDER [address] [place] [address] 08/27/2025 9:30 AM EST Office Visit [facility] [address] [place] [phone] Georgie Johnson APRN-SEAT MENDER [address] [place] [address] documented as of this encounter Procedures Procedure Name Priority Date/Time Associated Diagnosis Comments MULTIPLE LABS Routine 06/05/2020 COLONOSCOPY Routine 2015 documented in this encounter Results * Multiple labs (06/05/2020) 06/05/2020 us Scanning Provider External [facility] Final Result Performing Organization Address City/[facility] Co de Phone Number MANUALLY TRANSCRIBED RESULTS * COLONOSCOPY (2015) 2015 us Scanning Provider External HEALTH MAINTENANCE Fi nal Result Performing Organization Address [facility] Co de Phone Number MANUALLY TRANSCRIBED LAB RESULTS documented in this encounter Visit Diagnoses Not on filedocumented in this encounter Additional Health Concerns Assessment Noted Time PHQ-9 Depression Total Score: 0 08/14/19 21 3:00 PM EST A Body Mass Index follow-up plan has been documented for the patient 08/14/2020 4:56 PM EST documented as of this encounter Care Teams Drying Unit Felting Machine Operator Relationship Specialty Start Date End Date Georgie Johnson APRN-BULL [address] [place] [address] PCP - General Family Medicine 08/06/20 documented as of this encounter
--- OUTSIDE RECORDS SUMMARY | 2025-03-08 12:48 | XMS_ITS | Encounter Summary ---
Author Organization [facility] Address [id number] [address] [place] [address] Care Team Providers Care Ground Intelligence Officer Name Role Phone Georgie Johnson BRANCH CHIEF-CASTING SORTER Primary Care Provide r Encounter Details Date Type Department Care Team (Late st Contact Info) Description 10/30/2020 Orders Only [facility] [address] [place] [address] Georgie Johnson APRN-CNP [address] [place] [address] Social History Tobacco Use Types Packs/Day Years Used Date Smoking Tobacco: Never Smokeless Tobacco: Never Alcohol Use Standard Drinks/Week Comments Yes 2 (1 standard drink = 0.6 oz pur e alcohol) PHQ-2 Answer Date Recorded Total Score 0 10/30/2020 Childcare Answer Date Recorded Childcare Unknown 04/22/2020 [...] have Coronavirus / COVID-19? No / Unsure 11/01/2020 8:26 AM EDT documented as of this encounter Plan of Treatment Upcoming Encounters Date Type Department Care Team (Late st Contact Info) Description 03/12/2025 8:30 AM EDT Office Visit [facility] [address] [place] [address] Georgie Johnson APRN-CNP [address] [place] [address] 05/16/2025 2:00 PM EDT Office Visit [facility] [address] [place] [address] Georgie Johnson APRN-CNP [address] [place] [address] 08/27/2025 9:30 AM EST Office Visit [facility] [address] [place] [address] Georgie Johnson APRN-CNP [address] [place] [address] documented as of this encounter Visit Diagnoses Not on filedocumented in this encounter Additional Health Concerns Assessment Noted Time PHQ-9 Depression Total Score: 0 10/31/19 1:00 PM EDT A Body Mass Index follow-up plan has been documented for the patient 10/30/2020 2:58 PM EDT documented as of this encounter Care Teams Ground Intelligence Officer Relationship Specialty Start Date End Date Georgie Johnson APRN-CNP [address] [place] [address] PCP - General Family Medicine 08/06/20 documented as of this encounter
--- OUTSIDE RECORDS SUMMARY | 2025-03-08 12:48 | XMS_ITS | Encounter Summary ---
Author [facility] Address [id number] [address] [place] [address] Care Team Providers Care Industrial Tech Instructor Name Role Phone CorkyalinecoriGeorgie ruiz RENA-DIRECTOR PRESALES Primary Care Provide r Encounter Details Date Type Department Care Team (Late st Contact Info) Description 12/18/2020 [facility]phone [facility] [address] [place] [phone] Prince Rivera CNA Social History Tobacco Use Types Packs/Day Years Used Date Smoking Tobacco: Never Smokeless Tobacco: Never Alcohol Use Standard Drinks/Week Comments Yes 2 (1 standard drink = 0.6 oz pur e alcohol) PHQ-2 Answer Date Recorded Total Score 0 12/19/2020 Childcare Answer Date Recorded Childcare Unknown 04/22/2020 [...] have Coronavirus / COVID-19? No / Unsure 12/20/2020 8:40 AM EDT documented as of this encounter Miscellaneous Notes * Telephone Encounter - Prince Rivera CMA - 12/18/2020 4:01 PM EDT Patient calling and is requesting a prescription for ativan for her MRI due to her claustrophobia that she has scheduled on Wednesday. Patient has appointment tomorrow and said she would talk to you then as well but wanted to bring it to your attention before * Telephone Encounter - KASSIDY Chacko - 12/18/2020 4:01 PM EDT Okay we will discuss it then * Telephone Encounter - Prince Rivera CMA - 12/18/2020 4:01 PM EDT Left message for patient to inform her that it will be discussed at her appointment documented in this encounter Plan of Treatment Upcoming Encounters Date Type Department Care Team (Late st Contact Info) Description 03/12/2025 8:30 AM EDT Office Visit [facility] [place] [phone] Georgie Johnson APRN-CNP [address] [place] [address] 05/16/2025 2:00 PM EDT Office Visit [facility] [place] [phone] Georgie Johnson APRN-CNP [address] [place] [address] 08/27/2025 9:30 AM EST Office Visit [facility] [place] [phone] Georgie Johnson APRN-CNP [address] [place] [address] documented as of this encounter Visit Diagnoses Not on filedocumented in this encounter Additional Health Concerns Assessment Noted Time PHQ-9 Depression Total Score: 1 12/05/19 3:06 PM EDT A Body Mass Index follow-up plan has been documented for the patient 12/04/2020 4:33 PM EDT documented as of this encounter Care Teams Industrial Tech Instructor Relationship Specialty Start Date End Date Georgie Johnson APRN-CNP [address] [place] [address] PCP - General Family Medicine 08/06/20 documented as of this encounter
--- OUTSIDE RECORDS SUMMARY | 2025-03-08 12:48 | XMS_ITS | Encounter Summary ---
Author Organization [facility] Address [address] [place] [address] Care Team Providers Care Area Representative Name Role Phone Unavailable Primary Care Provider Unavailabl e Source Comments In the event this information is protected by the Federal Confidentiality of Alcohol and Drug AbusePatient Records regulations: The Federal rules restrict any use of the information to criminally investigate or prosecute any alcohol or drug abuse patient.[facility] Encounter Details Date Type Department Care Team (Late st Contact Info) Description 01/29/2025 Get Medical Advice Neurology [address] [place] [address] Alycia Huggins MD [address] [place] [address] B12 shots Social History Tobacco Use Types Packs/Day Years [...] is lower risk 4 05/10/2024 Data from: https://www.neighborhoodatlas.medicine.[facility].edu/. Last address used for calculation [address] [...] 04/18/2025 8:00 AM EDT Office Visit [address] [address] Alycia Huggins MD [address] [place] [address] new als Team clinic 04/18/2025 8:45 AM EDT Social Work [address] [address] Als, Bass Mechanism Maker [facility] [place] [address] new als Team clinic 04/18/2025 9:30 AM EDT Education [address] [address] Als, Data Acquisition Technician [address] [address] new als Team clinic 04/18/2025 9:55 AM EDT Nurse Visit [address] [address] Als, Nurse [address] [place] [address] new als Team clinic 04/18/2025 10:15 AM EDT OT/PT/Speech Visit [facility] Physical Therapy [address] [place] [address] Als, Physical Therapist [address] [address] new als Team clinic 04/18/2025 11:00 AM EDT OT/PT/Speech Visit [facility] Occupational Therapy [address] [address] Josseline Fatima, OT [address] [place] [address] new als Team clinic 04/18/2025 11:45 AM EDT Office Visit [facility] Speech Therapy [address] [address] new als Team clinic 06/27/2025 1:10 PM EST Office Visit Endocrinology [address] [place] [address] Evangelist Wetzel MD [address] [facility] 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 Author Blood Pressure < 130/80 Blood Pressure 137/61( 025 11:41 AM EDT) Riki Landa MD documented as of this encounter Visit Diagnoses Not on filedocumented in this encounter
--- OUTSIDE RECORDS SUMMARY | 2025-03-08 12:48 | XMS_ITS | Clinical Summary ---
Author Organization [facility] Address [address] [place] [address] Care Team Providers Care Head Counselor Name Role Phone Unavailable Primary Care Provider Unavailabl e Allergies Active Allergy Reactions Criticality Noted Date Comments Codeine Hcl GI Upset 04/25/2008 Hydromorphone 05/09/2008 headache Nsaids (Non-Steroidal Anti-I nflammatory Drug) 02/07/2003 Naprosyn Medications FLONASE 0.05% NASAL SPRAY use as directed 0 02/21/20 04 Active CLARITIN-D 24 HOUR 10 MG-240 MG ORAL TB24 Take one(1) tablet daily. 0 03/20/20 05 Active VITAMIN C 500 MG TAB Take one(1) tablet daily. 0 03/26/20 06 Active CALCIUM + D 600 MG-200 UNIT TAB one tablet daily 0 03/26/20 06 Active verapamil SR (CALAN SR) 120 mg CR tablet Take 120 mg by mouth every morning. Active LEXAPRO 10 mg tablet Take 10 mg by mouth once daily. 10/17/19 25 Active Magnesium Glycinate 100 mg tab Take 100 mg by mouth. Active Zinc Gluconate 50 mg tablet Take by mouth every 24 hours. Active zinc sulfate 220 mg (50 mg zinc) capsule Take 220 mg by mouth once daily. 04/12/20 24 Active vitamin D3-folic acid 125 mcg (5,000 unit)-1 mg tab Take 5,000 Units by mouth once daily. Active polyvinyl alcohol (LIQUIFILM TEARS) 1.4 % ophthalmic solution Use 1 drop in both eyes as needed. Active loratadine (CLARITIN) 10 mg tablet Take 10 mg by mouth once daily. Active calcium carbonate 500 mg calcium (1,250 mg) chewable tablet Take 500 mg by mouth once daily. Active levothyroxine (LEVOXYL) 75 mcg tabletIndicatio ns:Hypothyroidi sm due to Gem thyroiditis Take 1 tablet by mouth once daily. 90 tablet 02/24/20 25 Active levothyroxine (LEVOXYL) 50 mcg tablet Take 1 tablet by mouth once daily. 90 tablet 12/09/19 25 025 Discontinued Active Problems Problem Noted Date Diagnosed Date Epigastric pain 10/10/2024 Expressive aphasia 10/10/2024 Spinal stenosis, lumbar esteban on, without neurogenic claudication 04/04/2008 Encounters Date Type Department Care Team Description 03/06/2025 Patient Msg Neurology [address] [place] [address] Provider, [facility] from ALS clinic 02/19/2025 Get Medical Advice Endocrinology [address] [place] [address] Provider, Ccf MEDICATION 02/15/2025 11:45 AM EDT Office Visit Neurology [address] [place] [address] Manuel Rolle, TENT ASSEMBLER.CASE LINER ALS (amyotrophic lateral sclerosis) (HCC) (Primary Dx); History of hypothyroidism; Other vitamin B12 deficiency anemia; Gem's thyroiditis 02/09/2025 Travel 01/29/2025 Get Medical Advice Neurology [address] [place] [address] Alycia Huggins MD B12 shots 01/18/2025 Telephone [address] [place], [place] [phone] Alycia Huggins MD Received Outside Medical Records 01/12/2025 Results Follow-Up [facility] [address] [facility] [place] [address] Evangelist Wetzel MD 01/11/2025 Results Follow-Up Endocrinology [address] [place] [address] Evangelist Wetzel MD 01/10/2025 2:00 PM EDT Office Visit Neurology [address] [place] [address] Alycia Huggins MD ALS (amyotrophic lateral sclerosis) (HCC) (Primary Dx); Dysarthria 01/10/2025 10:00 AM EDT Office Visit Endocrinology [address] [place] [address] Leisa Garcias MD, PhD Multiple thyroid nodules (Primary Dx) 01/10/2025 Telephone Neurology [address] [place] [address] Sandra Marrero RN 12/25/2024 6:58 AM EDT - 12/25/2024 11:59 PM EDT Hospital Encounter MRI [facility] [address] [place] [address] Dysarthria [R47.1] Discharge Disposition: Home 12/22/2024 Telephone Neurology [address] [place] [address] Alycia Huggins MD Orders 12/20/2024 9:00 AM EDT Office Visit Neurology [address] [place] [address] Alycia Huggins MD Dysarthria (Primary Dx); Motor neuron disease (HCC); Hyperreflexia; Encounter for screening for human immunodeficiency virus (HIV) 12/17/2024 Travel 12/14/2024 Patient [facility] -[address] [place] [address] Shawna Ambrose RPh At your next appointment, choose [facility]. 12/08/2024 Results Follow-Up Endocrinology [address] 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; Thyroid nodule 12/06/2024 Travel from Last 3 Months Family History Medical History Relation Comments Colon Cancer Father Breast Cancer Other maternal great g randmother Colon Cancer Paternal Uncle Relation Status Comments Father Other Paternal Uncle Social History Tobacco Use Types Packs/Day Years Used Date Smoking Tobacco: Former Cigarettes 0.5 6 0 07/26/1969 - 07/26/1975 Smokeless Tobacco: Never Tobacco Cessation:Counseling Given: Not Answered Alcohol Use Standard Drinks/Week Comments Yes 0 (1 standard drink = 0.6 oz pur e alcohol) glass of wine rarely PHQ-2 Answer Date Recorded PHQ-2 score 0 02/09/2025 Area Deprivation Index Answer Date Giovani rded National Score (1-100), lower number is lower ri sk 60 05/10/2024 State Score (1-10), lower number is lower risk 4 05/10/2024 Data from: https://www.neighborhoodatlas.medicine.[facility]/. Last address used for calculation [address] 05/10/2024 Comments No Sex and Gender Information Value Date Recorded Sex Assigned at Not on file Legal Sex Female 9:58 AM EST Gender Identity Not on file Sexual Orientation Not on file Last Filed Vital Signs Vital Sign Reading Time Taken Comments Blood Pressure 137/61 02/15/2025 11:41 AM EDT Pulse 80 02/15/2025 11:41 AM EDT Temperature - - Respiratory Rate 16 04/04/2008 9:32 AM EDT Oxygen Saturation 94% 02/15/2025 11:41 AM EDT Inhaled Oxygen Concentration - - Weight 96.2 kg (212 lb) 02/15/2025 11:41 AM EDT Height 160 cm (5' 3 ) 02/15/2025 11:41 AM EDT Body Mass Index 37.55 02/15/2025 11:41 AM EDT Plan of Treatment Upcoming Encounters Date Type Department Care Team (Latest Contact Info) Description 04/18/2025 8:00 AM EDT Office Visit [address] [address] Alycia Huggins MD [address] [place] [address] [facility] Team clinic 04/18/2025 8:45 AM EDT Social Work [address] [address] Als, Manager [employer] [address] [place], [place] [phone] [facility] Team clinic 04/18/2025 9:30 AM EDT Education [address] [address] Als, Replanting Machine Crewman [address] [place] [address] [facility] Team clinic 04/18/2025 9:55 AM EDT Nurse Visit [address] [address] Als, Nurse [address] [place] [address] [facility] als Team clinic 04/18/2025 10:15 AM EDT OT/PT/Speech Visit [facility] Physical Therapy [address] [place] [address] Als, Physical Therapist [address] [place] [place] [address] [facility] als Team clinic 04/18/2025 11:00 AM EDT OT/PT/Speech Visit [facility] Occupational Therapy [address] [place] [address] Josseline Fatima, OT [address] [place] [address] [facility] als Team clinic 04/18/2025 11:45 AM EDT Office Visit [facility] Speech Therapy [address] [place] [address] [facility] Team clinic 06/27/2025 1:10 PM EST Office Visit Endocrinology [address] [facility] [place] [address] Evangelist Wetzel MD [address] [facility] [place] [address] 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] 07/11/2025 3:00 PM EST Office Visit Neurology [address] [place] [address] Alycia Huggins MD [address] [place] [address] new [facility] Team clinic Health Maintenance Due Date Last Done Comments Annual PCP Team Chronic Dise ase Visit 12/10/1965 Anxiety Screening 12/10/1965 Depression Screening 12/10/1965 Hepatitis C Screening 12/10/1965 Shingrix Vaccine (1 of 2) 12/10/1997 Medicare Annual Wellness Visit 01/23/2014 RSV Vaccine (1 - 1-dose 75+ series) 12/10/2022 Advance Directive Discussion 07/26/2024 Influenza Vaccine (#1) 2025 , 05/29/2023, 06/13/2022, Additional history exists Diabetes Screening 10/11/2027 10/10/2024, 0 08/29/2024, 08/29/2024, Additional history exists DTaP,Tdap,Td Vaccine (2 - Td or Tdap) 10/26/2028 10/26/2018 Pneumococcal Vaccine: 50+ Completed 05/27/2016, 07/2015 Bone Density Screening Completed 09/16/2022 Mammogram Screening Discontinued 05/10/2024, 10/09/2022, 10/09/2022, Additional history exists Goals Goal Patient Goal Type Associated Problems Recent Progress Patient-Stated? 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 CYTOLOGY NON-CONTROL PANEL BUILDER Routine 01/10/2025 10:4 0 AM EDT Multiple thyroid nodules FINE NEEDLE ASPIRATION BX W/US GDN 1ST LESION Routine 01/10/2025 10:12 AM EDT Multiple thyroid nodules US THYROID FNA (POC) ENDO USE ONLY Routine 01/10/2025 10:07 AM EDT Multiple thyroid nodules MRI BRAIN WO IVCON Routine 12/25/2024 7: 23 AM EDT Dysarthria Motor neuron disease (HCC) Hyperreflexia LYME AB LATE >30 DAYS SYMPTOMS Routine 12/20/2024 10:39 AM EDT Dysarthria Hyperreflexia HTLV AB SCREEN Routine 12/20/2024 10:39 AM EDT Dysarthria Hyperreflexia SYPHILIS TREPONEMAL W/REFLEX Routine 12/20/2024 10:39 AM EDT Dysarthria Hyperreflexia HIV 1/2 COMBO WITH REFLEX TO DIFFERENTIATION Routine 12/20/2024 10:39 AM EDT Dysarthria Hyperreflexia Encounter for screening for human immunodeficiency virus (HIV) VITAMIN B12 BLOOD Routine 12/20/2024 10: 39 AM EDT Dysarthria Hyperreflexia VITAMIN E/TOCOPHEROL Routine 12/20/2024 10:39 AM EDT Dysarthria Hyperreflexia COPPER BLOOD Routine 12/20/2024 10:39 AM EDT Dysarthria Hyperreflexia MUSK ANTIBODY TEST Routine 12/20/2024 10 :39 AM EDT Dysarthria Hyperreflexia T4 FREE/FREE THYROX Routine 12/06/2024 1 :09 PM EDT 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 us External Provider PA-C LABORATORY Final Res ult * MISC SEND OUT TST 1 (01/10/2025 3:25 PM EDT) Test 1 SP194 - IONPolimetrix ALS SPONSORED TESTING 01/21/2025 11:58 AM EDT NON-INTERFACE D REF LABS Test Results 1 View results in Scanned Documents link when available 01/21/2025 11:58 AM EDT NON-INTERFACE D REF LABS Referral Lab 1 Prevention Genetics 01/21/2025 11:58 AM EDT [facility] Blood BLOOD SPECIMEN / Unknown Venipuncture / Unknown 01/10/2025 3:25 PM EDT 01/10/2025 3:25 PM EDT us Alycia Huggins MD LABORATORY Edited Res ult - Final NON-INTERFACED REF LABS [facility] [address] [place] [address], * THYROID STIMULATING HORMONE (01/10/2025 3:25 PM EDT) Only the most recent of2 resultswithin the time period is included. TSH 1.810 0.270 - 4.200 mIU/L 01/10/2025 5:42 PM EDT [facility] Blood BLOOD SPECIMEN / Unknown Venipuncture / Unknown 01/10/2025 3:25 PM EDT 01/10/2025 3:25 PM EDT Evangelist Wetzel MD LABORATORY Final Result Performing Organization Address City/[facility]/ZIP Co de Phone Number [facility] [address] [place] [address], * T4 FREE/FREE THYROXINE (01/10/2025 3:25 PM EDT) Only the most recent of2 resultswithin the time period is included. Free T4 1.4 0.9 - 1.7 ng/dL 01/10/2025 5:42 PM EDT [facility] Blood BLOOD SPECIMEN / Unknown Venipuncture / Unknown 01/10/2025 3:25 PM EDT 01/10/2025 3:25 PM EDT Evangelist Wetzel MD LABORATORY Final Result Performing Organization Address City/[facility] Co de Phone Number [facility] [address] [place] [address], * CYTOLOGY NON-CONTROL PANEL BUILDER (01/10/2025 10:40 AM EDT) Case Report Medical Cytology Report Case: [id number] Authorizing Provider: Leisa Garcias MD, PhD Collected: 01/10/2025 10:40 AM Ordering Location: Endocrinology Received: 01/10/2025 12:14 PM Pathologist: Jesus Villa MD Specimen: Thyroid, Left, Lobe 01/11/2025 5:07 PM EDT [facility] FINAL DIAGNOSIS A - Thyroid, Left, Lobe, FNA Benign. Chronic lymphocytic thyroiditis, see comment. The following cell blocks were associated with this case: A1 Cell Block, Alcohol Fixed 01/11/2025 5:07 PM EDT [facility] at 1707 EDT Diagnosis Comment Selected slides were reviewed in consultation with Dr. Ivy, who concurs. 01/11/2025 5:07 PM EDT [facility] Gross Description A. Thyroid, Left, Lobe 30 cc clear pink CytoLyt with scant particles. ThinPrep and Cell Block prepared and 2 smears. Afirma sample received 01/11/2025 5:07 PM EDT [facility] Clinical History Thyroid Nodules .Afirma sample received 01/11/2025 5:07 PM EDT [facility] Performing Lab Technical component, unix manager screening performed at: [facility], [address] [place] [address] CLIA: [id number] Diagnostic interpretation performed at: [facility], [address] [place] [address] CLIA# [id number] [employer] Integration Architect: Estuardo Blair MD 01/11/2025 5:07 PM EDT [facility] Disclaimer Laboratory Developed Test (LDT) Disclaimer: Performance characteristics of immunohistochemical , immunofluorescent, and chromogenic in-situ hybridization tests have been determined by the performing laboratory within [facility]'s [facility] Pathology and Laboratory Medicine Department ([facility], [facility], [facility], [facility], [facility], [facility], or [facility]) in a manner consistent with CLIA requirements. One or more of these tests may not have been cleared or approved by the FDA. [facility] is regulated under CLIA as qualified to perform high-complexity testing. These tests are used for clinical purposes. These should not be regarded as investigational or for research. Positive and negative controls stain appropriately. 01/11/2025 5:07 PM EDT [facility] Aspirate/Fine Needle Aspirate THYROID LOBE SPECIMEN / Unknown 01/10/2025 10:40 AM EDT 01/10/2025 12:14 PM EDT us Leisa Garcias MD, PhD CYTOLOGY Final Re sult [facility] [address] [place], [place] [address], [place] [address], [place] * FINE NEEDLE ASPIRATION BX W/US GDN 1ST LESION (01/10/2025 10:12 AM EDT) Narrative Leisa Garcias MD, PhD - 01/10/2025 10:12 AM EDT Leisa Garcias MD, PhD 01/10/2025 11:20 AM FNA BIOPSY Referring Physician: Evangelist Wetzel MD Primary Care Physician: No primary care provider on file. Patient on anti-platelet or anticoagulant drugs: No. The risks, benefits and anticipated outcomes of the procedure, the risks and benefits of the alternatives to the procedure, and the roles and tasks of the personnel to be involved, were discussed with the patient. Informed Consent Consent Obtained: Written [place] Protocol A moment to CARE was completed. SIGN IN Special Equipment: N/A Patient/Surrogate Stated/Verified: Patient name, Date of , Relevant allergies and Intended procedure TIME OUT Relevant labs, photos, and/or imaging studies have been reviewed. Consent documented and matches the intended procedure. SIGN OUT All specimens correctly labeled and sent. She was positioned in decubitus with neck in extension. The skin was prepped in the usual aseptic manner. Procedure: Fine Needle Aspiration of Thyroid Nodule. The nodule is located in the superior left lobe. Ice pack used to numb the skin overlying the area of the nodule. through target nodule using 25 G needle(s) with ultrasound guidance. Aspirate character: a small drop of blood. Afirma sample sent. Band aid applied to the area. Outcome: tolerated well, no immediate complications Was told to go the emergency room if there is severe pain or swelling in the neck area. Follow up with referring physician. Leisa Garcias MD, PhD us Leisa Garcias MD, PhD PROCEDURE Final Re sult * US THYROID FNA (POC) ENDO USE ONLY (01/10/2025 10:07 AM EDT) 01/10/2025 10:0 7 AM EDT us Leisa Garcias MD, PhD IMAGES Final Re sult [facility] * MRI BRAIN WO IVCON (12/25/2024 7:23 AM EDT) Anatomical Region Laterality Modality Head Magnetic Resonan ce 12/25/2024 7:23 AM EDT Impressions 12/25/2024 8:59 AM EDT IMPRESSION: No acute intracranial process. No definite MR abnormalities identified to explain patient's symptoms. Mild cortical susceptibility along the left greater than right lateral precentral gyri, which has been described in motor neuron disease but is a nonspecific finding and can be seen in normal exams. Head Resident: PSCB Transcribe Date/Time: Dec 25 2024 8:38A Dictated by : MONICA BURR MD This examination was interpreted and the report reviewed and electronically signed by: MONICA BRUR MD on Dec 25 2024 8:56AM EST Narrative 12/25/2024 8:59 AM EDT * * *Final Report* * * DATE OF EXAM: Dec 25 2024 7:23AM M2M 0294 - MRI BRAIN WO IVCON / PROCEDURE REASON: multiple diagnoses * * * * Physician Interpretation * * * * EXAMINATION: MRI BRAIN WO IVCON CLINICAL HISTORY: progressive dysarthria, concern for progressive bulbar palsy/motor neuron disease TECHNIQUE: Routine noncontrast MRI protocol including diffusion images. MQ: MRBWO_2 COMPARISON: None. RESULT: Acute Change: There is no evidence of restricted diffusion to suggest an acute infarct. Hemorrhage: No evidence of prior parenchymal hemorrhage on the susceptibility weighted images. Mild cortical susceptibility along the left greater than right lateral precentral gyri, which has been described in motor neuron disease but is a nonspecific finding and can be seen in normal exams. Mass Lesion/ Mass Effect: No evidence of an intracranial mass or extra-axial fluid collection. No significant mass effect. Chronic Change: Scattered punctate foci of increased T2 and FLAIR signal are noted in the supratentorial white matter which is a nonspecific finding, but likely represents minimal chronic microvascular ischemia. Parenchyma: No significant volume loss for age. Midbrain volumes are well maintained. The brain parenchyma is otherwise within normal limits of signal intensity and morphology. No volume loss or T2/FLAIR signal abnormality of the perirolandic cortex or corticospinal tracts. No convincing brainstem T2 FLAIR signal abnormalities. Ventricles: Normal caliber and morphology. Skull Base: Within constraints of exam, no gross abnormalities along the course of visualized cranial nerves. Hypothalamic and pituitary region are grossly normal. Craniocervical junction is normal. No significant marrow replacement process. Vasculature: Major intracranial arterial structures, and dural venous sinuses show typical flow void, suggesting patency by spin echo criteria. Other: The visualized paranasal sinuses and mastoid air cells are clear. The orbits and extracranial soft tissues are unremarkable. No appreciable tongue fatty atrophy. Procedure Note Provider, [facility] - 12/25/2024 * * *Final Report* * * DATE OF EXAM: Dec 25 2024 7:23AM M2M 0294 - MRI BRAIN WO IVCON / PROCEDURE REASON: multiple diagnoses * * * * Physician Interpretation * * * * EXAMINATION: MRI BRAIN WO IVCON CLINICAL HISTORY: progressive dysarthria, concern for progressive bulbar palsy/motor neuron disease TECHNIQUE: Routine noncontrast MRI protocol including diffusion images. MQ: MRBWO_2 COMPARISON: None. RESULT: Acute Change: There is no evidence of restricted diffusion to suggest an acute infarct. Hemorrhage: No evidence of prior parenchymal hemorrhage on the susceptibility weighted images. Mild cortical susceptibility along the left greater than right lateral precentral gyri, which has been described in motor neuron disease but is a nonspecific finding and can be seen in normal exams. Mass Lesion/ Mass Effect: No evidence of an intracranial mass or extra-axial fluid collection. No significant mass effect. Chronic Change: Scattered punctate foci of increased T2 and FLAIR signal are noted in the supratentorial white matter which is a nonspecific finding, but likely represents minimal chronic microvascular ischemia. Parenchyma: No significant volume loss for age. Midbrain volumes are well maintained. The brain parenchyma is otherwise within normal limits of signal intensity and morphology. No volume loss or T2/FLAIR signal abnormality of the perirolandic cortex or corticospinal tracts. No convincing brainstem T2 FLAIR signal abnormalities. Ventricles: Normal caliber and morphology. Skull Base: Within constraints of exam, no gross abnormalities along the course of visualized cranial nerves. Hypothalamic and pituitary region are grossly normal. Craniocervical junction is normal. No significant marrow replacement process. Vasculature: Major intracranial arterial structures, and dural venous sinuses show typical flow void, suggesting patency by spin echocriteria. Other: The visualized paranasal sinuses and mastoid air cells are clear. The orbits and extracranial soft tissues are unremarkable. No appreciable tongue fatty atrophy. IMPRESSION IMPRESSION: No acute intracranial process. No definite MR abnormalities identified to explain patient's symptoms. Mild cortical susceptibility along the left greater than right lateral precentral gyri, which has been described in motor neuron disease but is a nonspecific finding and can be seen in normal exams. Head Resident: KIMBERLY Transcribe Date/Time: Dec 25 2024 8:38A Dictated by : MONICA BURR MD This examination was interpreted and the report reviewed and electronically signed by: MONICA BURR MD on Dec 25 2024 8:56AM EST us Alycia Huggins MD MRI-[facility]AMA Final Resu lt * SYPHILIS TREPONEMAL W/REFLEX (12/20/2024 10:39 AM EDT) Syphilis Treponemal Screen Nonreactive Nonreactive 12/20/2024 6:28 PM EDT [facility] Syphilis Interpretation Cannot exclude recent Treponemal infection if specimen collected within 7-10 days after appearance of suspect lesions or 2-3 weeks after an exposure. Clinical correlation is required. 12/20/2024 6:28 PM EDT [facility] Blood BLOOD SPECIMEN / Unknown Venipuncture / Unknown 12/20/2024 10:39 AM EDT 12/20/2024 10:43 AM EDT us Alycia Huggins MD LABORATORY Final Resu lt [facility] [address] [place] [address], * HTLV AB SCREEN (12/20/2024 10:39 AM EDT) HTLV I/II Ab Screen Negative Negative 12/21/2024 3:30 PM EDT [employer] Comment: Based on the non-reactive anti-HTLV VICENTE screen, the HTLV Western Blot is not indicated and therefore not performed. INTERPRETIVE INFORMATION: HTLV I/II Antibodies w/Reflex to Confirm This assay should not be used for blood donor screening, associated re-entry protocols, or for screening Human Cell, Tissues and Cellular and Tissue-Based Products (HCT/P). Performed By: [facility] [address] [place] [address] [employer] Integration Architect: Alejandro Lincoln MD, PhD CLIA Number: [id number] Blood BLOOD SPECIMEN / Unknown Venipuncture / Unknown 12/20/2024 10:39 AM EDT 12/20/2024 10:43 AM EDT Alycia Huggins MD LABORATORY Final Resu lt Performing Organization Address [facility] Co de Phone Number [employer] [address] [place] [address] * LYME AB LATE >30 DAYS SYMPTOMS (12/20/2024 10:39 AM EDT) [facility] [place] Antibodies, Screen Negative Negative 12/21/2024 12:06 PM EDT [facility] Comment:Recent infection wit h B. burgdorferi sensu lato cannot be excluded if the specimen collected within four weeks after the onset of signs and symptoms or within six weeks after a known tick exposure. Clinical and epidemiological correlation is required. Blood BLOOD SPECIMEN / Unknown Venipuncture / Unknown 12/20/2024 10:39 AM EDT 12/20/2024 10:43 AM EDT us Alycia Huggins MD LABORATORY Final Resu lt Performing Organization Address [facility] Co de Phone Number [facility] [address] [place] [address] * HIV 1/2 COMBO WITH REFLEX TO DIFFERENTIATION (12/20/2024 10:39 AM EDT) Pathologist [facility] HIV 12 Combo (Ag/Ab) Nonreactive Nonreactive 12/20/2024 6:24 PM EDT [facility] HIV-1/2 AB (Confirmatory) 12/20/2024 6:24 PM EDT [facility] Comment:Test not indicated. HIV Interpretation 12/20/2024 6:24 PM EDT [facility] Comment: No evidence of HIV-1 or HIV-2 infection. Should recent infection be suspected, repeat testing may be considered 2-3 weeks after this draw. [place] Rev. Code 3701.243(E): This information has been disclosed to you from confidential records protected from disclosure by state law. You shall make no further disclosure of this information without the specific, written, and informed release of the individual to whom it pertains or as otherwise permitted by state law. A general authorization for the release of medical or other information is not sufficient for the purpose of the release of HIV test results or diagnoses. Blood BLOOD SPECIMEN / Unknown Venipuncture / Unknown 12/20/2024 10:39 AM EDT 12/20/2024 10:43 AM EDT Alycia Huggins MD LABORATORY Final Resu lt Performing Organization Address [facility]/ZIP Co de Phone Number [facility] [address] [place] [address], * MUSCLE-SPECIFIC KINASE (MUSK) AUTOANTIBODY, SERUM (12/20/2024 10:39 AM EDT) MUSK Antibody 0.00 0.00 - 0.02 nmol/L 12/22/2024 8:35 PM EDT [facility] Comment: ADDITIONAL INFORMATION This test was developed using an analyte specific reagent. Its performance characteristics were determined by [facility] in a manner consistent with CLIA requirements. This test has not been cleared or approved by the U.S. Food and Drug Administration. Test Performed by: [facility] - [address] [address] Senior Vice President And Chief Information Officer: Norman Alegre Ph.D.; CLIA# [id number] Blood BLOOD SPECIMEN / Unknown Venipuncture / Unknown 12/20/2024 10:39 AM EDT 12/20/2024 10:43 AM EDT Alycia Huggins MD LABORATORY Final Resu lt Performing Organization Address City/[facility]/ZIP Co de Phone Number [facility] [address] [place] [address] [place] [address] * VITAMIN E/TOCOPHEROL (12/20/2024 10:39 AM EDT) [facility] Vitamin E-alpha 11.6 6.0 - 23.0 mg/L 12/22/2024 8:26 AM EDT [facility] Vitamin E-gamma 1.7 0.3 - 3.2 mg/L 12/22/2024 8:26 AM EDT [facility] Comment:This test was develo ped, and its performance characteristics determined by the [facility] Department of Pathology and Laboratory Medicine. It has not been cleared or approved by the FDA. The [facility] Department of Pathology and Laboratory Medicine is regulated under CLIA as qualified to perform high- complexity testing. This test is used for clinical purposes. It should not be regarded as investigational or for research. Blood BLOOD SPECIMEN / Unknown Venipuncture / Unknown 12/20/2024 10:39 AM EDT 12/20/2024 10:40 AM EDT us Alycia Huggins MD LABORATORY Final Resu lt [facility] [address] [place] [id number], [place] * VITAMIN B12 (12/20/2024 10:39 AM EDT) [facility] Vitamin B12 1,071 232 - 1,245 pg/mL 12/20/2024 12:57 PM EDT [facility] Blood BLOOD SPECIMEN / Unknown Venipuncture / Unknown 12/20/2024 10:39 AM EDT 12/20/2024 10:43 AM EDT us Alycia Huggins MD LABORATORY Final Resu lt [facility] [address] [place] [id number], [place] * COPPER BLOOD (12/20/2024 10:39 AM EDT) [facility] Copper 113 80 - 155 ug/dL 12/21/2024 1:12 PM EDT [facility] Comment:This test was develo ped, and its performance characteristics determined by the [facility] Department of Pathology and Laboratory Medicine. It has not been cleared or approved by the FDA. The [facility] Department of Pathology and Laboratory Medicine is regulated under CLIA as qualified to perform high- complexity testing. This test is used for clinical purposes. It should not be regarded as investigational or for research. Blood BLOOD SPECIMEN / Unknown Venipuncture / Unknown 12/20/2024 10:39 AM EDT 12/20/2024 10:43 AM EDT us Alycia Huggins MD LABORATORY Final Resu lt [facility] [address] [place] [address], * (ABNORMAL) COMPREHENSIVE METABOLIC PANEL (10/10/2024 9:46 AM EDT) Pathologist [facility] Protein, Total 7.3 6.3 - 8.0 g/dL 10/10/2024 11:12 AM EDT [facility] Albumin 4.0 3.9 - 4.9 g/dL 10/10/2024 11:12 AM EDT [facility] Calcium, Total 9.3 8.5 - 10.2 mg/dL 10/10/2024 11:12 AM EDT [facility] Bilirubin, Total 0.2 0.2 - 1.3 mg/dL 10/10/2024 11:12 AM EDT [facility] Alkaline Phosphatase 113 34 - 123 U/L 10/10/2024 11:12 AM EDT [facility] AST 23 13 - 35 U/L 10/10/2024 11:12 AM EDT [facility] ALT 27 7 - 38 U/L 10/10/2024 11:12 AM EDT [facility] Glucose 122(H) 74 - 99 mg/dL 10/10/2024 11:12 AM EDT [facility] Comment: The [place] Diabetes Association (ADA) provides guidance for cutoff values for fasting glucose and random glucose. The ADA defines fasting as no caloric intake for at least 8 hours. Fasting plasma glucose results between 100 to 125 mg/dL indicate increased risk for diabetes (prediabetes). Fasting plasma glucose results greater than or equal to 126 mg/dL meet the criteria for diagnosis of diabetes. In the absence of unequivocal hyperglycemia, results should be confirmed by repeat testing. In a patient with classic symptoms of hyperglycemia or hyperglycemic crisis, random plasma glucose results greater than or equal to 200 mg/dL meet the criteria for diagnosis of diabetes. Reference: Standards of Medical Care in Diabetes 2016, [place] Diabetes Association. Diabetes Care. 2016.39(Suppl 1). BUN 18 7 - 21 mg/dL 10/10/2024 11:12 AM [facility] Creatinine 0.76 0.58 - 0.96 mg/dL 10/10/2024 11:12 AM [facility] Sodium 139 136 - 144 mmol/L 10/10/2024 11:12 AM [facility] Potassium 4.4 3.7 - 5.1 mmol/L 10/10/2024 11:12 AM [facility] Chloride 101 98 - 107 mmol/L 10/10/2024 11:12 AM EDT [facility] CO2 25 22 - 30 mmol/L 10/10/2024 11:12 AM [facility] Anion Gap 13 8 - 15 mmol/L 10/10/2024 11:12 AM EDT [facility] Estimated Glomerular Filtration Rate 81 >=60 mL/min/1. 73m 10/10/2024 11:12 AM [facility] Comment:Estimated Glomerular Filtration Rate (eGFR) is calculated using the 2020 CKD-EPI creatinine equation. This equation utilizes serum creatinine, sex, and age as parameters. The creatinine assay has traceable calibration to isotope dilution- mass spectrometry. Refer to KDIGO guidelines for clinical interpretation. In patients with unstable renal function, e.g. those with acute kidney injury, the eGFR may not accurately reflect actual GFR. Blood BLOOD SPECIMEN / Unknown Venipuncture / Unknown 10/10/2024 9:46 AM EDT 10/10/2024 9:48 AM EDT us Didier Baumann MD LABORATORY Final Result [facility] [address] [place] [address], * [facility] SCREENING W LEONARDO (05/10/2024 11:42 AM EDT) Anatomical Region Laterality Modality Breast Mammography 05/10/2024 11:4 2 AM EDT Impressions 05/11/2024 7:18 AM EDT IMPRESSION: There is no mammographic evidence of [...] Laith Atkins M.D. Electronically signed on: 05/11/2024 Head Resident: SAHIL Transcribe Date/Time: May 10 2024 11:23A Dictated by: LAITH ATKINS MD This examination was interpreted and the report reviewed and electronically signed by: LAITH ATKINS MD on May 11 2024 7:13AM EST Narrative 05/11/2024 7:18 AM EDT * * *Final Report* * * DATE OF EXAM: May 10 2024 11:42AM [facility] 0582 - [facility] SCREENING W LEONARDO / PROCEDURE REASON: Encounter for screening mammogram * * * * Physician Interpretation * * * * RESULT: [facility]AST [facility] [address] [place] [address] HISTORY: Patient is 78 years old and [...] other abnormalities are seen in either breast. Procedure Note Provider, [facility] [place] - 05/11/2024 * * *Final Report* * * DATE OF EXAM: May 10 2024 11:42AM [facility] 0582 - [facility] SCREENING W LEONARDO / PROCEDURE REASON: Encounter for screening mammogram * * * * Physician Interpretation * * * * RESULT: [facility] [address] [place] [address] HISTORY: Patient is 78 years old and [...] other abnormalities are seen in either breast. IMPRESSION IMPRESSION: There is no mammographic evidence of [...] Laith Atkins M.D. Electronically signed on: 05/11/2024 Head Resident: SAHIL Transcribe Date/Time: May 10 2024 11:23A Dictated by: LAITH ATKINS MD This examination was interpreted and the report reviewed and electronically signed by: LAITH ATKINS MD on May 11 2024 7:13AM EST [facility] Arthur Manrique DO [facility] Final Result from Last 3 Months or Most Recently Relevant to Health Maintenance Insurance [facility] [place] [address]
--- OUTSIDE RECORDS SUMMARY | 2025-03-08 12:48 | XMS_ITS | Continuity of Care Document ---
Author [facility] Address [address] [place] [address] Problems Unknown Problems Results Test Result Date/Time Value / Unit Interp. Refere nce Range SARS-CoV-2 (COVID-19), RT-PC R/TMA[[id number]] Collected: 06/10/2021 01:35 PM Specimen Received: 06/11/2021 06:21 PM Source: [facility] SARS-CoV-2 INTERPRETATION [[id number]] 06/12/2021 02:22 AM Negative See Note SARS-CoV-2 RNA NOT DETECTEDN egative results do not preclude SARS-CoV-2 infection and should notbe used as the sole basis for patient management decisions. Negativeresults must be combined with clinical observations, patient history,and epidemiological information. Optimum specimen types and timingfor peak viral levels during infections caused by SARS-CoV-2 have notbeen determined. Collection of multiple specimens or types ofspecimens may be necessary to detect virus. Improper specimencollection and handling, sequence variability under primers/probes,or organism present below the limit of detection may lead to falsenegative results. Positive and negative predictive values oftesting are highly dependent on prevalence. False negative testresults are more likely when prevalence is high. SOURCE [[id number]] 06/12/2021 02:22 AM NASOPHARYNGEAL Note: Methodology is Marisela C tyler Real-Time RT-PCR. The expected result or reference range is NEGATIVE (Not Detected). For more information regarding COVID-19 testing to include clinicalinformation, methodology detail, intended use, FDA authorization andrecommended fact sheets for patients or healthcare providers, see [employer] Announcement: SARS-CoV-2 (COVID-19) by NAAT at URL below (note,fact sheets are provided by method given in report:[email or web address]/[email or web address]/[email or web address]/ Alternatively, see downloadable PDF fact sheet at:https://www.[employer]/PRPJO-41-RO-PCR SARS-COV-2 (COVID19), NAAT[[id number]] Collected: 08/06/2020 04:59 PM Specimen Received: 08/08/2020 03:04 AM Source: [facility] SARS-CoV-2 INTERPRETATION [[id number]] 08/08/2020 01:32 PM Negative See Note SARS-CoV-2 RNA NOT DETECTEDN egative results do not preclude SARS-CoV-2 infection and should notbe used as the sole basis for patient management decisions. Negativeresults must be combined with clinical observations, patient history,and epidemiological information. Optimum specimen types and timingfor peak viral levels during infections caused by SARS-CoV-2 have notbeen determined. Collection of multiple specimens or types ofspecimens may be necessary to detect virus. Improper specimencollection and handling, sequence variability under primers/probes,or organism present below the limit of detection may lead to falsenegative results. Positive and negative predictive values oftesting are highly dependent on prevalence. False negative testresults are more likely when prevalence is high. SOURCE [[id number]] 08/08/2020 01:32 PM NASOPHARYNGEAL Note: Methodology is MXP4 Real-Time RT-PCR. The expectedresult or reference range is NEGATIVE (Not Detected). For more information regarding COVID-19 testing to include clinicalinformation, methodology detail, intended use, FDA authorization andrecommended fact sheets for patients or healthcare providers, see [employer] Announcement: SARS-CoV-2 (COVID-19) by NAAT at URL below (note,fact sheets are provided by method given in report:https://www.[employer]/clinicians/client-communications/ Alternatively, see downloadable PDF fact sheet at:https://www.[employer]/GNLRC-65-OT-PCR Allergies, adverse reactions, alerts No known allergies and adverse reactions Medications No administered medications reported Vital Signs No vital signs reported Social History No smoking Hx information available
--- OUTSIDE RECORDS SUMMARY | 2025-03-08 12:48 | XMS_ITS | Encounter Summary ---
Author Organization [facility] Sys tem Address [id number] [address] [place] [address] Care Team Providers Care Podiatrist Assistant Name Role Phone Georgie Johnson LITHOGRAPHIC PRESS OPERATOR APPRENTICE-PRODUCTION RECORDER Primary Care Provide r Encounter Details Date Type Department Care Team (Late st Contact Info) Description 08/13/2020 Orders Only [facility] [address] [place] [address] Georgie Johnson APRN-CNP [address] [place] [address] Social History Tobacco Use Types Packs/Day Years Used Date Smoking Tobacco: Never Smokeless Tobacco: Never Alcohol Use Standard Drinks/Week Comments Yes 3 (1 standard drink = 0.6 oz pur [...] Visit [facility] [address] [place] [address] Georgie Johnson APRN-PRODUCTION RECORDER [address] [place] [address] 05/16/2025 2:00 PM EDT Office Visit [facility] [address] [place] [address] Georgie Johnson APRN-PRODUCTION RECORDER [address] [place] [address] 08/27/2025 9:30 AM EST Office Visit [facility] [address] [facility] [address] Georgie Johnson APRN-PRODUCTION RECORDER [address] [place] [address] documented as of this encounter Visit Diagnoses Not on filedocumented in this encounter Care Teams Podiatrist Assistant Relationship Specialty Start Date End Date Georgie Johnson APRN-CNP [address] [place] [address] PCP - General Family Medicine 08/06/20 documented as of this encounter
--- OUTSIDE RECORDS SUMMARY | 2025-03-08 12:48 | XMS_ITS | Encounter Summary ---
Author Organization [facility] Address [address] [place] [address] Care Team Providers Care Can Washer Name Role Phone Unavailable Primary Care Provider Unavailabl e Source Comments In the event this information is protected by the Federal Confidentiality of Alcohol and Drug AbusePatient Records regulations: The Federal rules restrict any use of the information to criminally investigate or prosecute any alcohol or drug abuse patient.[facility] Encounter Details Date Type Department Care Team (Late st Contact Info) Description 01/12/2025 Results Follow-Up Endocrinology [address] [facility] [place] [address] Evangelist Wetzel MD [address] [facility] [address] [place], [place] [id number] Social History Tobacco Use Types Packs/Day Years [...] is lower risk 4 05/10/2024 Data from: https://www.neighborhoodatlas.medicine.[facility].edu/. Last address used for calculation [address] [...] Description 04/18/2025 8:00 AM EDT Office Visit [address] [address] Alycia Huggins MD [address] [place], [place] [phone] [facility] 04/18/2025 8:45 AM EDT Social Work [address] [address] Als, Professor Of Sociology [address] [place], [place] [phone] [facility] 04/18/2025 9:30 AM EDT Education [address] [address] Als, Estimating Manager [address] [address] [facility] 04/18/2025 9:55 AM EDT Nurse Visit [address] [address] Als, Nurse [address] [place] [address] [facility] 04/18/2025 10:15 AM EDT OT/PT/Speech Visit [facility] [address] [place] [address] Als, Physical Therapist [address] [address] [facility] Team clinic 04/18/2025 11:00 AM EDT OT/PT/Speech Visit [facility] Occupational Therapy [address] [address] Josseline Fatima, OT [address] [place] [address] [facility] als Team clinic 04/18/2025 11:45 AM EDT Office Visit [facility] Speech Therapy [address] [address] [facility] als Team [facility] 06/27/2025 1:10 PM EST Office Visit Endocrinology [address] [place] [address] Evangelist Wetzel MD [address] [facility] [place] [address] 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 Author Blood Pressure < 130/80 Blood Pressure 137/61( 025 11:41 AM EDT) Riki Landa MD documented as of this encounter Visit Diagnoses Not on filedocumented in this encounter
--- OUTSIDE RECORDS SUMMARY | 2025-03-08 12:48 | XMS_ITS | Encounter Summary ---
Author Organization [facility] Sys tem Address [id number] [address] [place] [address] Care Team Providers Care Road Freight Conductor Name Role Phone Georgie Johnson CHILD WELFARE SOCIAL WORKER-TECHNICAL SUPPORT DIRECTOR Primary Care Provide r Encounter Details Date Type Department Care Team (Late st Contact Info) Description 08/24/2024 Orders Only [facility] [address] [place] [address] Georgie Johnson APRN-CNP [address] [place] [address] Medicare annual wellness visit, subsequent (Primary Dx); Spinal stenosis of lumbar region without neurogenic claudication; Cluster headache, not intractable, unspecified chronicity pattern; Type 2 diabetes mellitus without complication, without long-term current use of insulin ([facility]); Mixed hyperlipidemia; Depression, unspecified depression type Social History Tobacco Use Types Packs/Day Years [...] 08/20/2023 PHQ-2 Answer Date Recorded Total Score 3 08/24/2024 PRAPARE - Transportation Answer Date Re corded [...] got money to buy more. Never True 08/24/2024 Within the past 12 months th e food we bought just didn't last and we didn't have money to get more. Never True 08/24/2024 Purpose - Life Answer Date Recorded Purpose [...] Description 03/12/2025 8:30 AM EDT [facility] [address] [place], [place] [address] [phone] Georgie Johnson, CHILD WELFARE SOCIAL WORKER-TECHNICAL SUPPORT DIRECTOR [address] [place] [address] 05/16/2025 2:00 PM EDT [facility] [place] [phone] Georgie Johnson, RENA-TECHNICAL SUPPORT DIRECTOR [address] [place] [address] 08/27/2025 9:30 AM EST Office Visit [facility] [place] [address] Georgie Johnson APRN-CNP [address] [facility] [place], [place] [phone] documented as of this encounter Visit Diagnoses Diagnosis Medicare annual wellness visit, subsequent- Primary Spinal stenosis of lumbar region without neurogenic claudication Cluster headache, not intractable, unspecified chronicity pattern Type 2 diabetes mellitus without complication, without long-term current use of insulin ([facility]) Mixed hyperlipidemia Depression, unspecified depression type documented in this encounter Additional Health Concerns Assessment Noted Time PHQ-9 Depression Total Score: 3 08/24/19 25 8:00 AM EST A Body Mass Index follow-up plan has been documented for the patient 08/24/2024 10:31 AM EST documented as of this encounter Care Teams Road Freight Conductor Relationship Specialty Start Date End Date Georgie Johnson APRN-CNP [address] [place], [place] [phone] PCP - General Family Medicine 08/06/20 documented as of this encounter
--- OUTSIDE RECORDS SUMMARY | 2025-03-08 12:49 | XMS_ITS | Encounter Summary ---
Author Organization [facility] Address [id number] [address] [place] [address] Care Team Providers Care Director Traffic And Planning Name Role Phone Georgie Johnson APRN-IRON ASSORTER Primary Care Provide r Encounter Details Date Type Department Care Team (Late st Contact Info) Description 08/21/2022 Orders Only [facility] [address] [place] [phone] External, Scanning Provider Social History Tobacco Use Types Packs/Day Years Used Date Smoking Tobacco: Former Cigarettes Q uit: 06/25/1976 Smokeless Tobacco: Never Alcohol Use Standard Drinks/Week Comments Yes 2 (1 standard drink = 0.6 oz pur e alcohol) socially PHQ-2 Answer Date Recorded Total Score 1 08/20/2022 Childcare Answer Date Recorded Childcare Unknown 04/22/2020 [...] have Coronavirus / COVID-19? No / Unsure 08/20/2022 9:32 AM EST documented as of this encounter Plan of Treatment Upcoming Encounters Date Type Department Care Team (Late st Contact Info) Description 03/12/2025 8:30 AM EDT [facility] [place] [phone] Georgie Johnson APRN-CNP [address] [place] [address] 05/16/2025 2:00 PM EDT Office Visit [facility] [address] [place] [phone] Georgie Johnson APRN-CNP [address] [place] [address] 08/27/2025 9:30 AM EST Office Visit [facility] [address] [place] [phone] Georgie Johnson APRN-CNP 5 [facility] [place] [address] documented as of this encounter Procedures Procedure Name Priority Date/Time Associated Diagnosis Comments DIABETES EYE EXAM Routine 04/24/2022 documented in this encounter Results * DIABETES EYE EXAM (04/24/2022) 04/24/2022 us Scanning Provider External HEALTH MAINTENANCE nal Result MANUALLY TRANSCRIBED RESULTS documented in this encounter Visit Diagnoses Not on filedocumented in this encounter Additional Health Concerns Assessment Noted Time PHQ-9 Depression Total Score: 1 08/20/19 9:00 AM EST A Body Mass Index follow-up plan has been documented for the patient 08/20/2022 10:28 AM EST documented as of this encounter Care Teams Director Traffic And Planning Relationship Specialty Start Date End Date Georgie Johnson APRN-CNP [address] [place], [place] [address] [address] PCP - General Family Medicine 08/06/20 documented as of this encounter
--- OUTSIDE RECORDS SUMMARY | 2025-03-08 12:49 | XMS_ITS | Encounter Summary ---
Author Organization [employer] [facility] Address [id number] [address] [place] [address] Care Team Providers Care Concrete Block Layer Name Role Phone Elizabeth Georgie RENA-CEPHALOMETRIC TECHNICIAN Primary Care Provide r Encounter Details Date Type Department Care Team (Late st Contact Info) Description 03/06/2025 Telephone [facility] [address] [place] [phone] Brianna Lemus LPN Social History Tobacco Use Types Packs/Day Years [...] care, and heating? Not hard at all 02/20/2025 PHQ-2 Answer Date Recorded Total Score 0 02/21/2025 PRAPARE - Transportation Answer Date Re corded In the past 12 months, has l ack of transportation kept you from medical appointments or from getting medications? No 01/24 In the past 12 months, has l ack of transportation kept you from meetings, work, or from getting things needed for daily living? No 02/20/2025 Housing Instability Answer Date Recorde d Are you worried or concerned that in the next two months you may not have stable housing that you own, rent or stay in as a part of a household? No 02/20/2025 Childcare Answer Date Recorded Childcare Unknown 04/22/2020 Employment Answer Date Recorded Employment Unknown 04/22/2020 Hunger Screening Answer Date Recorded Within the past 12 months we worried whether our food would run out before we got money to buy more. Never True 02/21/2025 Within the past 12 months th e food we bought just didn't last and we didn't have money to get more. Never True 02/21/2025 Purpose - Life Answer Date Recorded Purpose and direction in life Unknown Comments No Sex and Gender Information Value Date Recorded Sex Assigned at Female 08/24/2022 12:04 PM EST Legal Sex Female 12:06 PM EDT Gender Identity Female 08/24/2022 12:04 PM EST Sexual Orientation Straight 08/24/2022 12 :04 PM EST documented as of this encounter Miscellaneous Notes * Telephone Encounter - Brianna Lemus LPN - 03/06/2025 12:52 PM EDT Patient called stated [place] been in [place] 11 days and when she returned she has really bad swelling. Patient stated she has taken water pills in the past and was wondering if you would prescribe some for her d/t not being able to see you until Wednesday. Patient stated you know she swells like this and needs something. * Telephone Encounter - KASSIDY Chacko - 03/06/2025 12:52 PM EDT Sent 7 days of lasix in, she seen lymphedema clinic in past, did they set her up with lymphedema pumps? * Telephone Encounter - Brianna Lemus LPN - 03/06/2025 12:52 PM EDT Patient stated yes she does have pumps but needs the edema to go down a little, because it is too pain full to use at this point. documented in this encounter Plan of Treatment Upcoming Encounters Date Type Department Care Team (Late st Contact Info) Description 03/12/2025 8:30 AM EDT Office Visit [facility] [address] [place] [phone] Georgie Johnson APRN-CNP [address] [place] [address] 05/16/2025 2:00 PM EDT Office Visit [facility] [address] [place] [address] Georgie Johnson APRN-CNP [address] [place] [address] 08/27/2025 9:30 AM EST Office Visit [facility] [address] [place] [address] Georgie Johnson APRN-CNP [address] [place] [address] documented as of this encounter Visit Diagnoses Not on filedocumented in this encounter Additional Health Concerns Assessment Noted Time PHQ-9 Depression Total Score: 0 02/22/20 25 2:06 PM EDT A Body Mass Index follow-up plan has been documented for the patient 02/21/2025 2:31 PM EDT documented as of this encounter Care Teams Concrete Block Layer Relationship Specialty Start Date End Date Georgie Johnson APRN-CNP [address] [place] [address] PCP - General Family Medicine 08/06/20 documented as of this encounter
--- OUTSIDE RECORDS SUMMARY | 2025-03-08 12:49 | XMS_ITS | Encounter Summary ---
Author Organization [employer] Address [id number] [address] [place] [address] Care Team Providers Care Cardiothoracic Physiotherapist Name Role Phone Georgie Johnson APRN-OUTPATIENT INTERVIEWING CLERK Primary Care Provide r Encounter Details Date Type Department Care Team (Late st Contact Info) Description 04/06/2023 Orders Only [facility] [address] [place] [phone] Marga Garcia CMA Thyroid antibody positive; Weight gain Social History Tobacco Use Types Packs/Day Years [...] Office Visit [facility] [address] [place] [phone] Georgie Johnson APRN-CNP [address] [place] [address] 05/16/2025 2:00 PM EDT Office Visit [facility] [address] [place], [place] [address] [address] Georgie Johnson APRN-CNP 5 [facility] [place] [address] 08/27/2025 9:30 AM EST Office Visit [facility] [place] [phone] Georgie Johnson APRN-CNP [address] [place] [address] documented as of this encounter Procedures Procedure Name Priority Date/Time Associated Diagnosis Comments AMB REFERRAL TO ENDOCRINOLOGY Routine 04/05/2023 Thyroid antibody positive Weight gain documented in this encounter Results * Ambulatory referral to Endocrinology (04/05/2023) 04/05/2023 Georgie YI OUTPATIENT REFERRAL O RDERABLES Final Result MANUALLY TRANSCRIBED RESULTS documented in this encounter Visit Diagnoses Diagnosis Thyroid antibody positive Weight gain Other symptoms concerning nutrition, metabolism, and development documented in this encounter Additional Health Concerns Assessment Noted Time PHQ-9 Depression Total Score: 1 08/20/19 23 9:00 AM EST A Body Mass Index follow-up plan has been documented for the patient 02/24/2023 11:43 AM EDT documented as of this encounter Care Teams Cardiothoracic Physiotherapist Relationship Specialty Start Date End Date Georgie Johnson APRN-CNP [facility] [place] [address] PCP - General Family Medicine 1/12/21 documented as of this encounter
--- OUTSIDE RECORDS SUMMARY | 2025-03-08 12:49 | XMS_ITS | Encounter Summary ---
Author Organization [facility] Address [id number] [address] [place] [address] Care Team Providers Care Inspector Filters Name Role Phone Georgie Johnson DIVISION OPERATIONS MANAGER-FOOD COOKING MACHINE OPERATOR Primary Care Provide r Encounter Details Date Type Department Care Team (Late st Contact Info) Description 03/06/2025 Orders Only [facility] [address] [place] [phone] Georgie Johnson APRN-CNP [address] [place] [address] Social History Tobacco Use Types [...] Description 03/12/2025 8:30 AM EDT Office Visit [facility] [address] [place], [place] [address] [address] Georgie Johnson APRN-FOOD COOKING MACHINE OPERATOR [address] [place] [address] 05/16/2025 2:00 PM EDT Office Visit [facility] [address] [place], [place] [address] [address] Georgie Johnson APRN-FOOD COOKING MACHINE OPERATOR [address] [place] [address] 08/27/2025 9:30 AM EST Office Visit [facility] [address] [place], [place] [address] [address] Georgie Johnson, DIVISION OPERATIONS MANAGER-FOOD COOKING MACHINE OPERATOR [address] [place] [address] documented as of this encounter Visit Diagnoses Not on filedocumented in this encounter Additional Health Concerns Assessment Noted Time PHQ-9 Depression Total Score: 0 02/22/20 25 2:06 PM EDT A Body Mass Index follow-up plan has been documented for the patient 02/21/2025 2:31 PM EDT documented as of this encounter Care Teams Inspector Filters Relationship Specialty Start Date End Date Georgie Johnson APRN-FOOD COOKING MACHINE OPERATOR [address] [place] [address] PCP - General Family Medicine 08/06/20 documented as of this encounter
--- OUTSIDE RECORDS SUMMARY | 2025-03-08 12:49 | XMS_ITS | Encounter Summary ---
Author Organization [facility] Address [facility] [id number] [address] [place] [address] Care Team Providers Care Operator Receptionist Name Role Phone Georgie Johnson APRN-BOTTLING SUPERVISOR Primary Care Provide r Reason for Visit * Reason Comments Med Refill Encounter Details Date Type Department Care Team (Late st Contact Info) Description 12/06/2024 Refill [facility] [address] [place] [address] Georgie Johnson APRN-CNP [address] [place] [address] Social History Tobacco Use Types [...] PHQ-2 Answer Date Recorded Total Score 0 11/20/2024 PRAPARE - Transportation Answer Date Re corded [...] got money to buy more. Never True 11/20/2024 Within the past 12 months th e food we bought just didn't last and we didn't have money to get more. Never True 11/20/2024 Purpose - Life Answer Date Recorded Purpose [...] EDT Office Visit [facility] [address] [place], [place] [address] [phone] Georgie Johnson, INSTRUCTOR TAP DANCING-BOTTLING SUPERVISOR [address] [place] [address] 05/16/2025 2:00 PM EDT Office Visit [facility] [address] [place], [place] [address] [address] Georgie Johnson, INSTRUCTOR TAP DANCING-BOTTLING SUPERVISOR 5 [facility] [address] 08/27/2025 9:30 AM EST Office Visit [facility] [address] [place], [place] [address] [address] Georgie Johnson, INSTRUCTOR TAP DANCING-BOTTLING SUPERVISOR [address] [place] [address] documented as of this encounter Visit Diagnoses Not on filedocumented in this encounter Additional Health Concerns Assessment Noted Time PHQ-9 Depression Total Score: 0 11/21/19 25 9:15 AM EDT A Body Mass Index follow-up plan has been documented for the patient 11/20/2024 9:54 AM EDT documented as of this encounter Care Teams Operator Receptionist Relationship Specialty Start Date End Date Georgie Johnson APRN-BOTTLING SUPERVISOR [address] [place] [address] PCP - General Family Medicine 08/06/20 documented as of this encounter
--- OUTSIDE RECORDS SUMMARY | 2025-03-08 12:49 | XMS_ITS | Encounter Summary ---
Author Organization [facility] Address [address] [place] [address] Care Team Providers Care Powerhouse Laborer Name Role Phone House Sr., Kevin HUGGINS Primary Care Provider + Source Comments In the event this information is protected by the Federal Confidentiality of Alcohol and Drug AbusePatient Records regulations: The Federal rules restrict any use of the information to criminally investigate or prosecute any alcohol or drug abuse patient.[facility] Encounter Details Date Type Department Care Team (Late st Contact Info) Description 09/27/2019 Radiology Mammography [address] [place] [address] Mary Grace Olmedo, RDMS Social History Tobacco Use Types Packs/Day Years Used Date Smoking Tobacco: Former Cigarettes 0.5 6 0 07/26/1969 - 07/26/1975 Alcohol Use Standard Drinks/Week Comments Yes 0 (1 standard drink = 0.6 oz pur e alcohol) Comments No Sex and Gender Information Value Date Recorded Sex Assigned at Not on file Legal Sex Female 9:58 AM EST Gender Identity Not on file Sexual Orientation Not on file documented as of this encounter Plan of Treatment Upcoming Encounters Date Type Department Care Team (Latest Contact Info) Description 04/18/2025 8:00 AM EDT Office Visit [address] [address] Alycia Huggins MD [address] [place] [address] [facility] 04/18/2025 8:45 AM EDT Social Work [address] [address] Als, Census Enumerator [address] [place] [address] new [facility] Team clinic 04/18/2025 9:30 AM EDT Education [address] [address] Als, Center Medical Specialist [address] [address] new [facility] Team clinic 04/18/2025 9:55 AM EDT Nurse Visit [address] [address] Als, Nurse [address] [place] [address] new [facility] Team clinic 04/18/2025 10:15 AM EDT OT/PT/Speech Visit [facility] Physical Therapy [address] [place] [address] Als, Physical Therapist [address] [address] new [facility] Team clinic 04/18/2025 11:00 AM EDT OT/PT/Speech Visit [facility] Occupational Therapy [address] [address] Josseline Fatima, OT [address] [place] [address] new [facility] Team clinic 04/18/2025 11:45 AM EDT Office Visit [facility] Speech Therapy [address] [address] new als Team clinic 06/27/2025 1:10 PM EST Office Visit Endocrinology [address] [place] [address] Evangelist Wetzel MD [address] 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
--- OUTSIDE RECORDS SUMMARY | 2025-03-08 12:49 | XMS_ITS | Encounter Summary ---
Author Organization [facility] Address [address] [place] [address] Care Team Providers Care Research Clerk Name Role Phone Unavailable Primary Care Provider Unavailabl e Source Comments In the event this information is protected by the Federal Confidentiality of Alcohol and Drug AbusePatient Records regulations: The Federal rules restrict any use of the information to criminally investigate or prosecute any alcohol or drug abuse patient.[facility] Encounter Details Date Type Department Care Team (Late st Contact Info) Description 12/14/2024 Patient [facility] -3 [address] [place] [address] Shawna Abmrose RPh At your next appointment, choose [facility]. Social History Tobacco Use Types Packs/Day Years Used Date Smoking Tobacco: Former Cigarettes 0.5 6 0 07/26/1969 - 07/26/1975 Smokeless Tobacco: Never Alcohol Use Standard Drinks/Week Comments Yes 7 (1 standard drink = 0.6 oz pur e alcohol) PHQ-2 Answer Date Recorded PHQ-2 score 0 12/17/2024 Area Deprivation Index Answer Date Giovani rded National Score (1-100), lower number is lower ri sk 60 05/10/2024 State Score (1-10), lower number is lower risk 4 05/10/2024 Data from: https://www.neighborhoodatlas.medicine.[facility].edu/. Last address used for calculation [address] 05/10/2024 Comments No Sex and Gender Information Value Date Recorded Sex Assigned at Not on file Legal Sex Female 9:58 AM EST Gender Identity Not on file Sexual Orientation Not on file documented as of this encounter Plan of Treatment Upcoming Encounters Date Type Department Care Team (Latest Contact Info) Description 04/18/2025 8:00 AM EDT Office Visit [address] [address] Alycia Huggins MD [address] [place] [address] new [facility] Team clinic 04/18/2025 8:45 AM EDT Social Work [address] [address] Als, Library Director [address] [place] [address] new als Team clinic 04/18/2025 9:30 AM EDT Education [address] [address] Als, Elementary Instructional Coach [address] [place] [address] new als Team clinic 04/18/2025 9:55 AM EDT Nurse Visit [address] [address] Als, Nurse [address] [place] [address] new als Team clinic 04/18/2025 10:15 AM EDT OT/PT/Speech Visit [facility] Physical Therapy [address] [place] [address] Als, Physical Therapist [address] [place] [address] new als Team clinic 04/18/2025 11:00 AM EDT OT/PT/Speech Visit [facility] Occupational Therapy [address] [place] [address] Josseline Fatima, OT [address] [place] [address] new als Team clinic 04/18/2025 11:45 AM EDT Office Visit [facility] Speech Therapy [address] [place] [address] new als Team clinic 06/27/2025 1:10 PM EST Office Visit Endocrinology [address] [place] [address] Evangelist Wetzel MD [address] [place] [address] 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 Author Blood Pressure < 130/80 Blood Pressure 137/61( 025 11:41 AM EDT) Riki Landa MD documented as of this encounter Visit Diagnoses Not on filedocumented in this encounter
--- OUTSIDE RECORDS SUMMARY | 2025-03-08 12:49 | XMS_ITS | Encounter Summary ---
Author Organization [facility] Sys tem Address [id number] [address] [place] [address] Care Team Providers Care Police Booking Officer Name Role Phone Georgie Johnson TRAVEL AGENCY MANAGER-STACK MATCHER Primary Care Provide r Encounter Details Date Type Department Care Team (Late st Contact Info) Description 07/31/2020 Orders Only [facility] [address] [place] [phone] Georgie Johnson APRN-CNP [address] [place] [address] Social History Tobacco Use Types Packs/Day Years Used Date Smoking Tobacco: Never Smokeless Tobacco: Never Alcohol Use Standard Drinks/Week Comments Yes 3 (1 standard drink = 0.6 oz pur e alcohol) Childcare Answer Date Recorded Childcare Unknown 04/22/2020 Employment Answer Date Recorded Employment Unknown 04/22/2020 Comments No Sex and Gender Information Value [...] or suspected to have Coronavirus / COVID-19? Unable to assess 07/29/2020 6:29 AM EST documented as of this encounter Plan of Treatment Upcoming Encounters Date Type Department Care Team (Late st Contact Info) Description 03/12/2025 8:30 AM EDT Office Visit [facility] [address] [place] [address] Georgie Johnson APRN-CNP [address] [place] [address] 05/16/2025 2:00 PM EDT Office Visit [facility] [address] [place] [address] Georgie Johnson APRN-CNP [address] [place] [address] 08/27/2025 9:30 AM EST Office Visit [facility] [address] [place] [address] Georgie Johnson APRN-CNP [address] [place] [address] documented as of this encounter Visit Diagnoses Not on filedocumented in this encounter Care Teams Police Booking Officer Relationship Specialty Start Date End Date Georgie Johnson APRN-CNP [address] [place] [address] PCP - General Family Medicine 08/06/20 documented as of this encounter
--- OUTSIDE RECORDS SUMMARY | 2025-03-08 12:49 | XMS_ITS | Clinical Summary ---
Author Organization Chefs tem Address [id number] [address] [place] [address] Care Team Providers Care Crime Lab Technician Name Role Phone Georgie Johnson APRN-AUGER SUPERVISOR Primary Care Provide r Allergies Active Allergy Reactions Criticality Noted Date Comments Codeine Hcl GI Disturbance 04/25/2008 Hydromorphone 05/09/2008 headache Nsaids (Non-Steroidal Anti-Inflammatory Drug) 02/07/2003 Naprosyn Medications fluticasone propionate (FLONASE) 50 mcg/actuation nasal spray Administer 1 spray into each nostril in the morning. Active loratadine (CLARITIN) 10 mg tablet Take 1 tablet (10 mg total) by mouth in the morning. Active cholecalciferol , vitamin D3, 5,000 units tablet Take 1 tablet (5,000 Units total) by mouth in the morning. Active zinc gluconate 50 mg tablet Take 1 tablet (50 mg total) by mouth in the morning. Active ascorbic acid (VITAMIN C) 500 mg tablet Take 1 tablet (500 mg total) by mouth in the morning. Active calcium carbonate (OS-VICTORIA) 500 mg calcium (1,250 mg) chewable tablet Chew 1 tablet (500 mg total) and swallow in the morning. Active acetaminophen (TYLENOL EXTRA STRENGTH) 500 mg tablet Take 1 tablet (500 mg total) by mouth every 6 (six) hours as needed for pain. Active magnesium glycinate 100 mg tablet Take 1 tablet (100 mg total) by mouth in the morning and 1 tablet (100 mg total) at noon and 1 tablet (100 mg total) before bedtime. Active levothyroxine (SYNTHROID, LEVOTHROID) 25 MCG tablet Take 2 tablets (50 mcg total) by mouth in the morning. Active escitalopram (LEXAPRO) 10 mg tablet Take 1 tablet (10 mg total) by mouth in the morning. 90 tablet 1 5 Active verapamil SR (CALAN-SR) 120 mg CR tabletIndicatio ns:Cluster headache, not intractable, unspecified chronicity pattern Take 1 tablet (120 mg total) by mouth every morning. 90 tablet 1 5 Active furosemide (LASIX) 20 mg tablet Take 1 tablet (20 mg total) by mouth daily. 7 tablet 5 Active verapamil SR (CALAN-SR) 120 mg CR tabletIndicatio ns:Cluster headache, not intractable, unspecified chronicity pattern Take 1 tablet (120 mg total) by mouth every morning. 30 tablet 5 5 02/20/20 25 Discontin ued(Reord er) Active Problems Problem Noted Date Diagnosed Date Amyotrophic lateral sclerosis (ALS) 02/21/2025 Gem thyroiditis 02/21/2025 Expressive aphasia 10/10/2024 Dizziness 02/24/2024 Primary osteoarthritis of left hip 05/28/2021 Overview (05/28/2021): Added automatically from request for surgery [id number] Cluster headache, not intractable 01/21/2021 Primary stabbing headache 12/04/2020 Headache due to low cerebrospinal fluid pressure 12/04/2020 Acute nonintractable headache 12/04/2020 Severe obesity (BMI 35.0-39.9) with comorbidity 11/21/2020 Trochanteric bursitis of both hips 04/24/2020 Lumbar spondylosis 04/24/2020 Disorder of sacrum 04/24/2020 Bilateral hip pain 04/24/2020 Ischial bursitis of right side 04/24/2020 Spinal stenosis of lumbar re gion without neurogenic claudication 04/04/2008 Diabetes mellitus, type 2 Encounters Date Type Department Care Team Description 03/06/2025 Orders Only [facility] [address] [place] [address] Georgie Johnson, TRAILHEAD CONSTRUCTION WORKER-AUGER SUPERVISOR 03/06/2025 Telephone [facility] [address] [place], [place] [address] [phone] Brianna Lemus LPN 02/21/2025 2:00 PM EDT Office Visit [facility] [address] [place], [place] [address] [phone] Georgie Johnson APRN-CNP Amyotrophic lateral sclerosis (ALS) ([facility]) (Primary Dx); Gem thyroiditis 02/20/2025 Travel 02/19/2025 Refill [facility] [address] [place] [phone] Nathaly Mercer, KENYA Cluster headache, not intractable, unspecified chronicity pattern 12/08/2024 Refill [facility] [address] [place] [phone] Brianna Lemus LPN 12/06/2024 Refill [facility] [address] [place] [phone] Georgie Johnson APRN-CNP from Last 3 Months Immunizations Immunization Administration Dates Next Due COVID-19, mRNA, LNP-S, PF, 100mcg/0.5mL Dose ,09/11/2020 Covid-19, Mrna, Lnp-s, Bival ent, Pf, 50mcg/0.5ml or 25mcg/0.25ml 06/13/2022 Influenza (IM) Preservative Free 08/09/2024,04/25 Influenza High Dose Preservative Free IM 016 Influenza Vaccine, Quadrivalent, Adjuvanted 10/2022 Influenza, High-dose, Quadrivalent 06/13/2022 Influenza, Injectable, quadrivalent (PF) 020 Pneumococcal Conjugate 13-Valent 05/27/2016 Tdap 10/26/2018 Family History Medical History Relation Name Comments Arthritis Father Heart disease Father Back Problems Mother COPD Mother Polymyositis Sister Relation Name Status Comments Father Mother Sister Social History Tobacco Use Types Packs/Day Years Used Date Smoking Tobacco: Former Cigarettes Q uit: 06/25/1976 Smokeless Tobacco: Never Tobacco Cessation:Counseling Given: Not Answered Alcohol Use Standard Drinks/Week Comments Yes 2 [...] Orientation Straight 08/24/2022 12 :04 PM EST Last Filed Vital Signs Vital Sign Reading Time Taken Comments Blood Pressure 124/72 02/21/2025 2:06 PM EDT Pulse 86 02/21/2025 2:06 PM EDT Temperature 36.1 C (97 F) 08/19/2021 10:49 AM EST Respiratory Rate 18 02/21/2025 2:06 PM EDT Oxygen Saturation 97% 02/21/2025 2:06 PM EDT Inhaled Oxygen Concentration - - Weight 98.9 kg (218 lb) 02/21/2025 2:06 PM EDT Height 158.8 cm (5' 2.5 ) 08/24/2024 8:58 AM EST Body Mass Index 39.24 08/24/2024 8:58 AM EST Plan of Treatment Upcoming Encounters Date Type Department Care Team (Late st Contact Info) Description 03/12/2025 8:30 AM EDT Office Visit [facility] [address] [place] [address] [place] [phone] Georgie Johnson TRAILHEAD CONSTRUCTION WORKER-AUGER SUPERVISOR [address] [facility] [place] [address] 05/16/2025 2:00 PM EDT Office Visit [facility] [address] [place], [place] [address] [phone] Georgie Johnson TRAILHEAD CONSTRUCTION WORKER-AUGER SUPERVISOR [address] [place] [address] 08/27/2025 9:30 AM EST Office Visit [facility] [address] [place] [address] [place] [address] Georgie Johnson APRN-AUGER SUPERVISOR [address] [place] [address] Health Maintenance Due Date Last Done Comments Zoster (Shingles) Vaccine (1 of 2) 12/10/1997 COVID-19 Vaccine (2023-2 5 season) 2024 05/29/2023, 06/13/2022, 06/07/2021, Additional history exists Influenza Vaccine 03/26/2025 08/09/2024, , 06/13/2022, Additional history exists Fall Risk Screening 08/24/2025 08/24/2024 Medicare Annual Wellness Visit 08/24/2025 0 08/24/2024, 08/23/2023, 08/20/2022, Additional history exists Depression Screening 02/21/2026 02/21/2025 Tobacco Screening 02/21/2026 02/21/2025 DTaP,Tdap and Td Vaccines (2 - Td or Tdap) 10/26/2028 10/26/2018 Colonoscopy 04/25/2029 04/25/2024, 2015 Medical Devices Not on file Procedures Procedure Name Priority Date/Time Associated Diagnosis Comments COLONOSCOPY Routine 04/25/2024 9:27 AM EDT from Last 3 Months or Most Recently Relevant to Health Maintenance Results * HM COLONOSCOPY (04/25/2024 9:27 AM EDT) us Scanning Provider External HEALTH MAINTENANCE Fi nal Result MANUALLY TRANSCRIBED RESULTS from Last 3 Months or Most Recently Relevant to Health Maintenance Insurance MEDICARE Care Teams Crime Lab Technician Relationship Specialty Start Date End Date Georgie Johnson APRN-BULL [address] [place] [address] PCP - General Family Medicine 08/06/20
--- NOTE | 2025-03-08 12:59 | ECG_ITS ---
[facility] Test Date: 2025-03-08 Pat Name: JANNET LYNN Department: Room: - Gender: Female Apparel Rental Clerk: : 1945 Requested By: [id number] Order Number: [id number] Reading MD: TIFFANY COSBY M.D. Measurements Intervals [place] Rate: 65 P: 53 AK: 172 QRS: 28 QRSD: 90 T: 13 QT: 406 QTc: 417 Interpretive Statements 1100 Sinus rhythm 9110 normal ECG No previous ECG available for comparison Electronically Signed On 03-08-2025 19:33:47 EDT by TIFFANY COSBY M.D.
--- NOTE | 2025-03-08 12:59 | XR_ITS ---
The [address] [address] Patient Name: JANNET LYNN MRN: [id number] date: 1945 Sex: F Assigned Patient Location: ER Current Patient Location: ER Accession/Order Number: [id number] Exam Date: 03/08/2025 13:41 Report Date: 03/08/2025 13:57 At the request of: OLIVIA HERRING MD Procedure: XR chest 1V PA CHEST: CLINICAL HISTORY: Peripheral edema COMPARISON: None Unremarkable cardiomediastinal silhouette. Lungs clear. No effusion or pneumothorax. XR/XR chest 1V IMPRESSION: Negative acute pleural-parenchymal disease. Impression dictated by: Bud Contreras M.D. 03/08/2025 1:57 PM Dictation Location: [place] [address] Electronically authenticated by: [id number] Y Date: 03/08/2025 13:57
--- NOTE | 2025-03-08 13:01 | ED.GENADUL1 ---
HPI HPI - General Adult General Chief complaint: Extremity Problem, Nontraumatic Stated complaint: LOWER EXTREMITY PAIN Time Seen by Provider: 03/08/25 12:39 Source: patient Mode of arrival: walk-in Limitations: no limitations History of Present Illness HPI narrative: 79-year-old female presented to the emergency department for redness and swelling in both of her lower extremities. 3 days ago she got back from an 11-day trip to [place] and her symptoms started about 5 days into the trip, about 9 days ago. No chest pain or shortness of breath. She was seen at an urgent care center and was put on an antibiotic, Augmentin, and her PCP put her on Lasix as well. They continue to be swollen and erythematous. Related Data Home Medications ?Medication ?Instructions ?Recorded ?Confirmed amoxicillin 875 mg-potassium 1 tab PO BID 03/08/25 03/08/25 clavulanate 125 mg tablet escitalopram oxalate 10 mg tablet 10 mg PO DAILY 03/08/25 03/08/25 furosemide 20 mg tablet 20 mg PO DAILY 03/08/25 03/08/25 levothyroxine 75 mcg tablet 75 mcg PO DAILY 03/08/25 03/08/25 verapamil 120 mg tablet,extended 120 mg PO DAILY 03/08/25 03/08/25 release Allergies Allergy/AdvReac Type Severity Reaction Status Date / Time codeine AdvReac Severe Nausea Verified 03/08/25 12:36 NSAIDS (Non-Steroidal AdvReac Severe Nausea Verified 03/08/25 12:36 Anti-Inflamma Opioid HPI Opioid Management Most Recent Opioid Data: Last Pain Scale 4 Today, 12:36 Review of Systems ROS Narrative A ten point review of systems is negative except as noted above. PFSH PFSH Social History Little interest or pleasure in doing things: not at all Feeling down, depressed, or hopeless: not at all Exam Narrative Exam Narrative: Nurses note and vital signs reviewed and patient is not hypoxic. General: The patient appears well and in no apparent distress. Patient is resting comfortably on cart. Skin: Warm, dry, no pallor noted. Head: Normocephalic, atraumatic Eye: Normal conjunctiva, no drainage Ears, Nose, Mouth, and Throat: oral mucosa is moist. Nares patent. Cardiovascular: Regular Rate and Rhythm Respiratory: Patient is in no distress, no accessory muscle use, lungs are clear to auscultation, no wheezing, rales or rhonchi Back: non-tender GI: Soft and nontender Musculoskeletal: Bilateral lower extremities are erythematous from her ankles two thirds of the way to her knee. There is some edema. No open area or drainage. Neurological: Awake alert and oriented Psychiatric: Cooperative Constitutional Vital Signs, click to edit/add: Last Vital Signs Temp 98.3 F 03/08/25 12:36 Pulse 72 03/08/25 12:36 Resp 20 03/08/25 12:36 BP 147/79 H 03/08/25 12:36 Pulse Ox 94 L 03/08/25 12:36 Course Vital Signs Vital signs: Vital Signs Temperature 98.3 F 03/08/25 12:36 Pulse Rate 72 03/08/25 12:36 Respiratory Rate 20 03/08/25 12:36 Blood Pressure 147/79 H 03/08/25 12:36 Pulse Oximetry 94 L 03/08/25 12:36 Temperature 98.3 F 03/08/25 12:36 Pulse Rate 72 03/08/25 12:36 Respiratory Rate 20 03/08/25 12:36 Blood Pressure 147/79 H 03/08/25 12:36 Pulse Oximetry 94 L 03/08/25 12:36 Medical Decision Making MDM Narrative Medical decision making narrative: Doppler shows no DVT. WBC is normal and chest x-ray shows no heart failure. I have low suspicion for infection in both of these legs and this is more likely due to venous stasis. She will use elevation and was referred to vascular surgeon for follow-up. Treatment diagnosis and follow-up were discussed with the patient. She has compression stockings that she will use. Differential Diagnosis Differential Diagnosis: DVT, cellulitis, peripheral edema Lab Data Lab results reviewed: Yes I reviewed the patient's lab results Labs: Lab Results 03/08/25 Range/Units 13:08 WBC 8.4 (4.0-11.0) 10^3/uL RBC 4.47 (4.20-5.40) 10^6/uL Hgb 13.3 (12.0-16.0) g/dL Hct 40.1 (36.0-48.0) % MCV 89.7 (81.0-99.0) fL MCH 29.8 (26.7-34.0) pg MCHC 33.2 (29.9-35.2) g/dL RDW 13.8 (11.0-15.0) % Plt Count 257 (150-450) 10^3/uL MPV 10.2 (9.5-13.5) fL Neut % (Auto) 63.1 (43.0-75.0) % Lymph % (Auto) 21.0 (20.5-60.0) % [place] % (Auto) 9.6 (1.7-12.0) % Eos % (Auto) 5.6 (0.9-7.0) % Baso % (Auto) 0.5 (0.2-2.0) % Neut # (Auto) 5.3 (1.4-6.5) 10^3/uL Lymph # (Auto) 1.8 (1.2-3.8) 10^3/uL [place] # (Auto) 0.8 (0.3-0.8) 10^3/uL Eos # (Auto) 0.5 (0.0-0.7) 10^3/uL Baso # (Auto) 0.0 (0.0-0.1) 10^3/uL Abs Immat Gran (auto) 0.02 (0.00-0.03) 10^3/uL Imm/Tot Granulo (auto) 0.2 (0.0-0.5) % Sodium 140 (136-145) mmol/L Potassium 4.4 (3.5-5.1) mmol/L Chloride 103 (98-107) mmol/L Carbon Dioxide 31.3 (21.0-32.0) mmol/L Anion Gap 10.1 BUN 23.0 H (7.0-18.0) mg/dL Creatinine 0.85 (0.55-1.02) mg/dL Est GFR ( Amer) >60 (>=60 mL/min/1.73m^2) Est GFR (Non-Af Amer) >60 (>=60 mL/min/1.73m^2) BUN/Creatinine Ratio 27.1 Glucose 88 (74-106) mg/dL Calcium 9.1 (8.5-10.1) mg/dL Imaging Data Bilateral lower extremity Doppler: Radiologist's impression: ITS Impressions Chest X-Ray 08/14/25 12:59 IMPRESSION: Negative acute pleural-parenchymal disease. Impression dictated by: Bud Contreras M.D. 03/08/2025 1:57 PM Dictation Location: [place] [address] Electronically authenticated by: [id number] Y Date: 03/08/2025 13:57 No DVT in right lower extremity, no DVT in left lower extremity Discharge Plan Discharge Chief Complaint: Extremity Problem, Nontraumatic Clinical Impression: Peripheral edema Patient Disposition: Home, Self-Care Time of Disposition Decision: 14:48 Condition: Good Mode of Transportation: Private Vehicle Prescriptions / Home Meds: No Action amoxicillin-pot clavulanate 875-125 mg tablet 1 tab PO BID furosemide 20 mg tablet 20 mg PO DAILY verapamil 120 mg tablet extended release 120 mg PO DAILY levothyroxine 75 mcg tablet 75 mcg PO DAILY escitalopram oxalate 10 mg tablet 10 mg PO DAILY Print Language: Stateless Instructions: Leg Edema (ED) Additional Instructions: Continue your antibiotic and Lasix. Follow-up with vascular surgeon, Dr. Fofana. Elevate your legs and use your compression stockings. Referrals: Angy Fofana MD [Physician, Vascular Surgery] Georgie Johnson NP [Primary Care Provider] - 1 week
[2025-03-08 13:13] LABS: Hematocrit 40.1 % (36.0-48.0); Hemoglobin 13.3 g/dL (12.0-16.0); Immature Granulocytes Abs Auto 0.02 10^3/uL (0.00-0.03); Immature Granulocytes Pct Auto 0.2 % (0.0-0.5); Lymphocytes Absolute Auto 1.8 10^3/uL (1.2-3.8); Mean Corpuscular HGB Conc 33.2 g/dL (29.9-35.2); Mean Corpuscular Hemoglobin 29.8 pg (26.7-34.0); Mean Corpuscular Volume 89.7 fL (81.0-99.0); Platelet Count 257 10^3/uL (150-450); Red Blood Count 4.47 10^6/uL (4.20-5.40); White Blood Count 8.4 10^3/uL (4.0-11.0)
[2025-03-08 13:21] LABS: Anion Gap 10.1; Blood Urea Nitrogen 23.0 mg/dL (7.0-18.0); Calcium 9.1 mg/dL (8.5-10.1); Carbon Dioxide 31.3 mmol/L (21.0-32.0); Chloride 103 mmol/L (98-107); Estimated GFR (African America >60 (>=60 mL/min/1.73m^2); Estimated GFR (Non-African Ame >60 (>=60 mL/min/1.73m^2); Glucose 88 mg/dL (74-106); Potassium 4.4 mmol/L (3.5-5.1); Sodium 140 mmol/L (136-145)
== END 2025-03-08 15:02 | disposition home or self-care (01) ==
PROVIDERS: Emergency Provider Emergency Medicine; PCP Nurse Practitioner Family
DX: R60.0 Localized edema (principal); L53.8 Other specified erythematous conditions
CPT/HCPCS: 36415; 71045; 80048; 85025; 93005; 93970; 99285